=== PATIENT | male | born 1965 | race Caucasian/White ===

== ENCOUNTER → 2022-07-01 | Outpatient (CLI) | payer OTHER | END | disposition home or self-care (01) | LOC: RADPETMAIN 08:30 | PROVIDERS: ATTEND Radiology Radiation Oncology | DX: Z53.9 Procedure and treatment not carried out, unspecified reason (principal) ==

== ENCOUNTER → 2022-07-09 | Outpatient (CLI) | payer OTHER ==
--- NOTE | 2022-07-11 22:19 | PE ---
EXAMINATION TYPE: PET CT fusion skull to thigh DATE OF EXAM: 07/09/2022 CLINICAL INDICATION:Male, 57 years old with history of C09.1; TECHNIQUE: Following the intravenous administration of 13.0 mCi of F-18 FDG, whole body images are performed from the skull base to the midthigh. Images are reviewed on the computer in the coronal, a xial, and sagittal planes. Reconstructed rotating images are created on independent workstation and reviewed on the computer. A non-contrast CT is performed in conjunction with the PET scan. Glucose level 100 mg/dL COMPARISON: CT None, PET/CT None, FINDINGS: Mediastinal SUV mean is 1.4. Hepatic parenchyma SUV mean is 1.8. SKULL BASE AND NECK: Left mucosal mass with local invasion involving the left oropharynx with extension down towards the h ypopharynx and lingual tonsils. This extends into the parapharyngeal space on the left Max SUV 19.4. Multiple left-sided neck lymph nodes with increased metabolic activity example includes: * 10 mm in short axis lymph node max SUV 5.6 level 3. * More anteriorly to above lymph node max SUV 4.9. * Additional smaller subcentimeter lymph nodes are asymmetric uptake also present in the left neck. CHEST, MEDIASTINUM, AND HILAR REGION: No suspicious radiotracer activity. ABDOMEN AND PELVIS: No suspicious radiotracer activity. OSSEOUS STRUCTURES: No suspicious radiotracer activity. OTHER CT: Coronary artery atherosclerosis. Multiple calcified gallstones are present. Atherosclerosis of the abdominal aorta. Appendix is normal. Postsurgical changes to the lower cervical spine. IMPRESSION: 1. 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 2. No evidence of metastatic disease to the chest abdomen or pelvis or osseous structures.
== END | disposition home or self-care (01) ==
LOC: RADPETMAIN 09:19
PROVIDERS: ATTEND Radiology Radiation Oncology
DX: C09.1 Malignant neoplasm of tonsillar pillar (anterior) (posterior) (principal); C77.0 Secondary and unspecified malignant neoplasm of lymph nodes of head, face and neck
CPT/HCPCS: 78815; A9552

== ENCOUNTER → 2022-07-15 | Outpatient (CLI) | payer BC ==
[2022-07-15 08:59] LABS: African American GFR (CKD) >90 (>60 ml/min/1.73 sqM); Anion Gap 6 mmol/L; Blood Urea Nitrogen 14 mg/dL (9-20); Calcium 8.8 mg/dL (8.4-10.2); Carbon Dioxide 31 mmol/L (22-30); Chloride 102 mmol/L (98-107); Glucose 86 mg/dL (74-99); Non-African American GFR(CKD) 88 (>60 ml/min/1.73 sqM); Potassium 4.5 mmol/L (3.5-5.1); Sodium 139 mmol/L (137-145)
--- NOTE | 2022-07-15 10:26 | CT ---
EXAMINATION TYPE: CT soft tissue neck w con CT DLP: 552 mGycm, Automated exposure control for dose reduction was used. DATE OF EXAM: 07/15/2022 9:14 AM COMPARISON: PET CT 07/09/2022. 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 Axial sections with coronal and sagittal reformats were obtained. FINDINGS: Brain: Visualized portions are grossly unremarkable. Orbits: Unremarkable Sinuses: Mild mucosal thickening of the bilateral maxillary sinuses. Spaces of the neck: Redemonstration of a large mass within the left tonsillar pillar extending into t he parapharyngeal space, hypopharynx, and lingual tonsils. This measures 4.2 x 4.0 x 7.1 cm in AP, TV , CC dimensions. This abuts the base of the tongue with mass effect and loss of fat plane. Additional ly there is loss of fat plane with the The submandibular glands and parotid glands are symmetric and unremarkable. The larynx is unremarkable. The retropharyngeal space is unremarkable. Musculoskeletal: No acute osseous pathology. No aggressive osseous lesion. Anterior cervical fusion h ardware involving C6-C7. Lymph nodes: Multiple. Enlarged left-sided lymph nodes involving stations IIA, IIb, and III . Examp le includes a left to a lymph node measuring 1.1 cm short axis (series 3, image 24) and IIA 0.9 cm ly mph node (series 3, image 26). These were FDG avid on previous PET/CT. Vascular structures: Visualized major arteries are patent without evidence of aneurysm. Thoracic Inlet/airway: Airway is patent. Mild centrilobular emphysematous changes. Soft tissues/Thyroid: Thyroid and remainder of the soft tissues are unremarkable. Other: none. IMPRESSION 1. Large 7.1 cm mass centered within the left oropharynx/tonsillar pillar with extension into the par apharyngeal space, hypopharynx, lingual tonsils. This is consistent with malignancy until proven othe rwise such as squamous cell carcinoma. 2. Multiple enlarged metastatic lymph nodes in the left neck as demonstrated on prior PET/CT.
== END | disposition home or self-care (01) ==
LOC: RADCTMAIN 07:59
PROVIDERS: ATTEND Radiology Radiation Oncology
DX: C09.1 Malignant neoplasm of tonsillar pillar (anterior) (posterior) (principal); C77.9 Secondary and unspecified malignant neoplasm of lymph node, unspecified; R59.0 Localized enlarged lymph nodes
CPT/HCPCS: 80048; 70491; 36415; Q9967

== ENCOUNTER 2022-07-24 13:14 | Inpatient (IN) | payer BC ==
[2022-07-24 13:56] LABS: Basophils % (A) 0 %; Eosinophils # (A) 0.1 k/uL (0-0.7); Eosinophils % (A) 1 %; HCT 35.1 % (39.0-53.0); Lymphocytes # (A) 1.6 k/uL (1.0-4.8); Lymphocytes % (A) 25 %; MCH 28.2 pg (25.0-35.0); MCV 82.7 fL (80.0-100.0); Mean Platelet Volume 7.7; Monocytes # (A) 0.4 k/uL (0-1.0); Monocytes % (A) 6 %; Neutrophils # (A) 4.1 k/uL (1.3-7.7); Neutrophils % (A) 66 %; Platelet Count 274 k/uL (150-450); RBC 4.25 m/uL (4.30-5.90); RDW 13.1 % (11.5-15.5); WBC 6.3 k/uL (3.8-10.6)
--- NOTE | 2022-07-24 14:01 | ED ---
General Adult HPI - General Chief complaint: Weakness Stated complaint: Weakness,Sore throat Time Seen by Provider: 07/24/22 13:31 Source: patient, family Mode of arrival: wheelchair Limitations: no limitations - History of Present Illness Initial comments: Dictation was produced using [employer] dictation software. please excuse any grammatical, word or spelling errors. Chief Complaint: 57-year-old male presents emergency department for weakness History of Present Illness: Patient is a 57-year-old male presents emergency department for weakness. He was recently diagnosed this month with oral cancer. Over the last week or so patient has been feeling generally weak he states that his cancer symptoms prevented him from tolerating good meal due to trouble with dysphagia. Patient was seen recently by radiation oncologist who didn't do an oral scope so that there is mass effect GI tract. She presents with family member states that patient has been increasingly weak likely because he is unable to eat. He has scheduled chemotherapy and radiation therapy in the near future. His oncologist is Dr. Taylor. The ROS documented in this emergency department record has been reviewed and confirmed by me. Those systems with pertinent positive or negative responses have been documented in the HPI. All other systems are other negative and/or noncontributory. PHYSICAL EXAM: General Impression: Alert and oriented x3, not in acute distress HEENT: Normocephalic atraumatic, extra-ocular movements intact, pupils equal and reactive to light bilaterally, mucous membranes moist, palpable mass to the left neck Cardiovascular: Heart regular rate and rhythm Chest: Able to complete full sentences, no retractions, no tachypnea Abdomen: abdomen soft, non-tender, non-distended, no organomegaly Musculoskeletal: Pulses present and equal in all extremities, no peripheral edema Motor: no focal deficits noted Neurological: CN II-XII grossly intact, no focal motor or sensory deficits noted Skin: Intact with no visualized rashes Psych: Normal affect and mood ED course: 57-year-old male presents to the emergency department with worsening dysphagia secondary to oral an upper GI tract tumor. Vital signs upon arrival are within acceptable limits. Patient not drooling or showing signs of respiratory distress. Nursing notes and chart review was performed Laboratory evaluation obtained. CBC metabolic panel is unremarkable. Abdominal labs negative. Patient given IV fluids. He'll be admitted with consultation to oncology and dietitian for nutritional support. - Related Data Allergies Allergy/AdvReac Type Severity Reaction Status Date / Time No Known Allergies Allergy Verified 07/24/22 13:26 Review of Systems ROS Statement: Those systems with pertinent positive or pertinent negative responses have been documented in the HPI. ROS Other: All systems not noted in ROS Statement are negative. Past Medical History Past Medical History: Cancer Additional Past Medical History / Comment(s): tonsil cancer History of Any Multi-Drug Resistant Organisms: None Reported Additional Past Surgical History / Comment(s): neck surgery Past Psychological History: Depression Smoking Status: Never smoker Past Alcohol Use History: None Reported Past Drug Use History: None Reported General Exam Limitations: no limitations Course Vital Signs 07/24/22 13:23 Temperature 98.9 F Pulse Rate 86 Respiratory 18 Rate Blood Pressure 118/74 O2 Sat by Pulse 98 Oximetry Medical Decision Making - Lab Data Result diagrams: 07/24/22 13:43 07/24/22 13:43 Lab Results 07/24/22 07/24/22 Range/Units 13:43 13:43 WBC 6.3 (3.8-10.6) k/uL RBC 4.25 L (4.30-5.90) m/uL Hgb 12.0 L (13.0-17.5) gm/dL Hct 35.1 L (39.0-53.0) % MCV 82.7 (80.0-100.0) fL MCH 28.2 (25.0-35.0) pg MCHC 34.0 (31.0-37.0) g/dL RDW 13.1 (11.5-15.5) % Plt Count 274 (150-450) k/uL MPV 7.7 Neutrophils % 66 % Lymphocytes % 25 % Monocytes % 6 % Eosinophils % 1 % Basophils % 0 % Neutrophils # 4.1 (1.3-7.7) k/uL Lymphocytes # 1.6 (1.0-4.8) k/uL Monocytes # 0.4 (0-1.0) k/uL Eosinophils # 0.1 (0-0.7) k/uL Basophils # 0.0 (0-0.2) k/uL Sodium 139 (137-145) mmol/L Potassium 4.0 (3.5-5.1) mmol/L Chloride 102 (98-107) mmol/L Carbon Dioxide 29 (22-30) mmol/L Anion Gap 8 mmol/L BUN 25 H (9-20) mg/dL Creatinine 0.94 (0.66-1.25) mg/dL Est GFR (CKD-EPI)AfAm >90 (>60 ml/min/1.73 sqM) Est GFR (CKD-EPI)NonAf >90 (>60 ml/min/1.73 sqM) Glucose 117 H (74-99) mg/dL Calcium 9.1 (8.4-10.2) mg/dL Magnesium 2.0 (1.6-2.3) mg/dL Total Bilirubin 0.4 (0.2-1.3) mg/dL AST 23 (17-59) U/L ALT 19 (4-49) U/L Alkaline Phosphatase 93 (38-126) U/L Total Protein 7.8 (6.3-8.2) g/dL Albumin 4.2 (3.5-5.0) g/dL Disposition Clinical Impression: Dysphagia Disposition: ADMITTED IP TO THIS HOSP Condition: Fair Referrals: None,Stated [Primary Care Provider] - 1-2 days Decision Time: 14:29
[2022-07-24 14:13] LABS: African American GFR (CKD) >90 (>60 ml/min/1.73 sqM); Anion Gap 8 mmol/L; Blood Urea Nitrogen 25 mg/dL (9-20); Carbon Dioxide 29 mmol/L (22-30); Chloride 102 mmol/L (98-107); Glucose 117 mg/dL (74-99); Sodium 139 mmol/L (137-145)
[2022-07-24 14:14] LABS: ALT 19 U/L (4-49); AST 23 U/L (17-59); Albumin 4.2 g/dL (3.5-5.0); Alkaline Phosphatase 93 U/L (38-126); Calcium 9.1 mg/dL (8.4-10.2); Non-African American GFR(CKD) >90 (>60 ml/min/1.73 sqM); Total Bilirubin 0.4 mg/dL (0.2-1.3); Total Protein 7.8 g/dL (6.3-8.2)
[2022-07-24] MEDS ORDERED: SODIUM CHLORIDE 0.9% 1,000 ML IV STA ×2 (14:28)
[2022-07-24] MEDS ORDERED: NALOXONE 0.4 MG/ML 1 ML VIAL IV PRN (14:29)
[2022-07-24] MEDS ORDERED: ACETAMINOPHEN TAB 325 MG TAB PO PRN (14:29)
[2022-07-24] MEDS: MORPHINE SULFATE 4 MG/ML SYRINGE IVP PRN ×2 (17:20→21:07)
--- NOTE | 2022-07-24 17:47 | P.HPIM ---
History of Present Illness A pleasant 57 years old male who was recently diagnosed with tonsillar/oral cancer. His oncologist is Dr. Taylor Was admitted because of difficulty eating and dysphagia. Patient will be able to eat because of his tonsillar tumor for the last 5 days. He presents because patient was not eating and drinking 5 days, his been diagno sed with left insular cancer and he has mildly tender nontender lump below his left mandibular angle however he has tender right lymphadenopathy below his right mandibular angle as he states, his airway is patent with some indentation from the left side however it looks like he has difficulty in swallowing He has some nausea but no vomiting, no bowel movement this was not eating well. No abdominal pain. No chest pain or dyspnea, no urinary complaints, no headache dizziness weakness or numbness Over his been complaining of from right side thigh pain with no history of trauma, this patient looks [id number] and is bothering him without distress. Recently he vomited some of blood and developed with his ENT Dr. Moncada at [facility] we did score for him and no concerning source of bleeding is found Review of Systems Review of systems CONSTITUTIONAL: No fever, no malaise, no fatigue. HEENT: No recent visual problems or hearing problems. Denied any sore throat. CARDIOVASCULAR: No orthopnea, PND, no palpitations, no syncope. PULMONARY: No shortness of breath, no cough, no hemoptysis. GASTROINTESTINAL: No diarrhea, no nausea, no vomiting, no abdominal pain. Normoactive bowel sounds. NEUROLOGICAL: No headaches, no weakness, no numbness. HEMATOLOGICAL: Denies any bleeding or petechiae. GENITOURINARY: Denies any burning micturition, frequency, or urgency. MUSCULOSKELETAL/RHEUMATOLOGICAL: Denies any joint pain, swelling, or any muscle pain. ENDOCRINE: Denies any polyuria or polydipsia. Past Medical History Past Medical History: Cancer Additional Past Medical History / Comment(s): tonsil cancer History of Any Multi-Drug Resistant Organisms: None Reported Additional Past Surgical History / Comment(s): neck surgery Past Psychological History: Depression Smoking Status: Never smoker Past Alcohol Use History: None Reported Past Drug Use History: None Reported - Past Family History Father Family Medical History: Dementia Medications and Allergies Home Medications Medication Instructions Recorded Confirmed Type Escitalopram [Lexapro] 10 mg PO DAILY 07/24/22 07/24/22 History Allergies Allergy/AdvReac Type Severity Reaction Status Date / Time No Known Allergies Allergy Verified 07/24/22 15:35 Physical Exam Vitals: Vital Signs Temp Pulse Resp BP Pulse Ox 07/24/22 13:23 98.9 F 86 18 118/74 98 Intake and Output 07/23/22 07/24/22 07/24/22 22:59 06:59 14:59 Other: Weight 62.596 kg GENERAL: The patient is alert and oriented x3, not in any acute distress. Well developed, well nourished. -HEENT: Pupils are round and equally reacting to light. EOMI. No scleral icterus. No conjunctival pallor. Normocephalic, atraumatic. No pharyngeal er ythema. No thyromegaly. Mouth tumor: Left tonsillar mass with some smooth indentation on the left side of the oral cavity, with tenderness below the right mandibular angle with some fullness mostly related to tender lymphedema. CARDIOVASCULAR: S1 and S2 present. No murmurs, rubs, or gallops. PULMONARY: Chest is clear to auscultation, no wheezing or crackles. ABDOMEN: Soft, nontender, nondistended, normoactive bowel sounds. No palpable organomegaly. MUSCULOSKELETAL: No joint swelling or deformity. EXTREMITIES: No cyanosis, clubbing, or pedal edema. NEUROLOGICAL: Gross neurological examination did not reveal any focal deficits. SKIN: No rashes. no petechiae. Results CBC & Chem 7: 07/24/22 13:43 07/24/22 13:43 Labs: Abnormal Lab Results - Last 24 Hours (Table) 07/24/22 07/24/22 Range/Units 13:43 13:43 RBC 4.25 L (4.30-5.90) m/uL Hgb 12.0 L (13.0-17.5) gm/dL Hct 35.1 L (39.0-53.0) % BUN 25 H (9-20) mg/dL Glucose 117 H (74-99) mg/dL Assessment and Plan Assessment: Recently diagnosed with left tonsillar cancer with cervical lymphadenopathy Dysphagia secondary to above Uduj-ml-awczpltz calories protein malnutrition Right thigh pain Plan: Continue with gentle hydration with D5 normal saline Pain management with IV morphine Check ultrasound of the right leg Nutrition consult Hematology/oncology consult Labs and medication were reviewed.. Continue same treatment. Continue with sym ptomatic treatment. Resume home medication. Monitor labs and vitals. DVT and GI prophylaxis. Further recommendations as per clinical course of the patient DVT prophylaxis: Subcutaneous heparin GI Prophylaxis: Pepcid PT/OT: Pending Prognosis is guarded
[2022-07-24] MEDS: DEXTROSE 5%-0.9% NACL 1,000 ML IV SCH (18:22)
[2022-07-24] MEDS: HEPARIN SODIUM,PORCINE/PF 5,000 UNIT/0.5 ML SYRINGE SQ SCH (20:19)
--- NOTE | 2022-07-24 22:07 | US ---
EXAMINATION TYPE: US venous doppler duplex LE RT DATE OF EXAM: 07/24/2022 6:12 PM COMPARISON: NONE CLINICAL HISTORY: thigh pain. right anterior thigh pain x 2 weeks, comes and goes, no h/o dvt SIDE PERFORMED: Right TECHNIQUE: The lower extremity deep venous system is examined utilizing real time linear array sonog nathalie with graded compression, doppler sonography and color-flow sonography. VESSELS IMAGED: Common Femoral Vein Deep Femoral Vein Greater Saphenous Vein * Femoral Vein Popliteal Vein Small Saphenous Vein * Proximal Calf Veins (* superficial vessels) Right Leg: Negative for DVT soft tissue scan at area of pain was wnl IMPRESSION: No evidence of deep vein thrombosis in the right leg.
[2022-07-25] MEDS: MORPHINE SULFATE 4 MG/ML SYRINGE IVP PRN ×4 (04:47→19:40)
[2022-07-25] MEDS: HEPARIN SODIUM,PORCINE/PF 5,000 UNIT/0.5 ML SYRINGE SQ SCH ×2 (09:55→19:40)
[2022-07-25] MEDS: FAMOTIDINE 20 MG/2 ML VIAL IV SCH ×2 (09:55→19:39)
[2022-07-25] MEDS: ONDANSETRON 4 MG/2 ML VIAL IVP PRN (12:08)
--- NOTE | 2022-07-25 12:38 | FL ---
EXAMINATION TYPE: FL barium swallow w video DATE OF EXAM: 07/25/2022 COMPARISON: NONE HISTORY: Rule out aspiration, tonsillar carcinoma TECHNIQUE: Fluoroscopy. FINDINGS: Fluoroscopic guidance was provided for the procedure performed in conjunction with the [facility] pathology department. Please see complete report forthcoming from the Speech Pathology departmen t. Various consistencies from thin liquid to solids were administered. Fluoroscopy time 1 minute 31 seconds. Number of images: 0. No aspiration or penetration was evident. There was moderate pooling within the vallecular region. There is a masslike area within the hypopharynx which correlates with the mass on CT findings. Patient complained of pain during swallowing. No aspiration or penetration was evident however. IMPRESSION: 1. No aspiration or penetration with swallowing thin liquids and pudding thick consistency
[2022-07-25 13:03] VITALS: BMI 20.3
--- NOTE | 2022-07-25 14:01 | P.PN ---
Subjective A pleasant 57 years old male who was recently diagnosed with tonsillar/oral cancer. His oncologist is Dr. Taylor Was admitted because of difficulty eating and dysphagia. Patient will be able to eat because of his tonsillar tumor for the last 5 days. He presents because patient was not eating and drinking 5 days, his been diagnosed with left insular cancer and he has mildly tender nontender lump below his left mandibular angle however he has tender right lymphadenopathy below his right mandibular angle as he states, his airway is patent with some indentation from the left side however it looks like he has difficulty in swallowing He has some nausea but no vomiting, no bowel movement this was not eating well. No abdominal pain. No chest pain or dyspnea, no urinary complaints, no headache dizziness weakness or numbness Over his been complaining of from right side thigh pain with no history of trauma, this patient looks [id number] and is bothering him without distress. Recently he vomited some of blood and developed with his ENT Dr. Moncada at [facility] we did score for him and no concerning source of bleeding is found 07/25/2022 Patient with known new symptoms He is here for dysphagia and odynophagia. Related to his tonsillar tumor and cervical lymphadenopathy. Speech evaluation is appreciated, they recommended thin liquids and pured diet however is still very painful for the patient and is getting malnutrition. I discussed the case with hematology/oncology team and both agreed that he will benefit from another way of nutrition, PEG tube would be better option for him. Also patient with evidence of bradycardia which could be due to morphine effect. We will check TSH at consult perforator operator Objective - Vital Signs Vital signs: Vital Signs Temp 97.6 F 07/25/22 12:13 Pulse 47 L 07/25/22 12:13 Resp 16 07/25/22 12:13 BP 123/67 07/25/22 12:13 Pulse Ox 99 07/25/22 12:13 FiO2 Intake & Output 07/24/22 07/25/22 07/25/22 18:59 06:59 18:59 Intake Total 900 1140 180 Balance 900 1140 180 Weight 62.596 kg 62.596 kg Intake: Intake, IV Titration 900 900 Amount Dextrose 5%-0.9% NaCl 1, 900 900 000 ml @ 75 mls/hr IV . [id number] ANGELA Rx#:[id number] Oral 240 180 Other: # Voids 1 - Exam GENERAL: The patient is alert and oriented x3, not in any acute distress. Well developed, well nourished. -HEENT: Pupils are round and equally reacting to light. EOMI. No scleral icterus. No conjunctival pallor. Normocephalic, atraumatic. No pharyngeal erythema. No thyromegaly. Mouth tumor: Left tonsillar mass with some smooth indentation on the left side of the oral cavity, with tenderness below the right mandibular angle with some fullness mostly related to tender lymphedema. CARDIOVASCULAR: S1 and S2 present. No murmurs, rubs, or gallops. PULMONARY: Chest is clear to auscultation, no wheezing or crackles. ABDOMEN: Soft, nontender, nondistended, normoactive bowel sounds. No palpable organomegaly. MUSCULOSKELETAL: No joint swelling or deformity. EXTREMITIES: No cyanosis, clubbing, or pedal edema. NEUROLOGICAL: Gross neurological examination did not reveal any focal deficits. SKIN: No rashes. no petechiae. - Labs CBC & Chem 7: 07/24/22 13:43 07/24/22 13:43 Labs: Abnormal Lab Results - Last 24 Hours (Table) 07/24/22 Range/Units 13:43 BUN 25 H (9-20) mg/dL Glucose 117 H (74-99) mg/dL Assessment and Plan Assessment: Recently diagnosed with left tonsillar cancer with cervical lymphadenopathy Dysphagia secondary to above Iyjg-pj-bbpgyydg calories protein malnutrition Right thigh pain Plan: Continue with gentle hydration with D5 normal saline Pain management with IV morphine Check ultrasound of the right leg Nutrition consult Hematology/oncology consult Labs and medication were reviewed.. Continue same treatment. Continue with symptomatic treatment. Resume home medication. Monitor labs and vitals. DVT and GI prophylaxis. Further recommendations as per clinical course of the patient DVT prophylaxis: Subcutaneous heparin GI Prophylaxis: Pepcid PT/OT: Pending Prognosis is guarded
--- NOTE | 2022-07-25 14:59 | P.GSCN ---
History of Present Illness Consult date: 07/25/22 History of present illness: CHIEF COMPLAINT: Weakness, sore throat HISTORY OF PRESENT ILLNESS: This is a 57-year-old male with a known history of tonsillar cancer that was diagnosed in May 2022. He is to start chemoradiation treatment on Monday. Patient reports that he has progressively gotten weaker and has had difficulty with swallowing. Patient reports that it is painful with swallowing liquids or solids. He was seen by speech therapy had recommended thin liquids and a pured diet. However patient is not meeting his nutritional needs. Patient followed closely by oncology. And surgical service has been consulted for PEG tube placement for patient to meet his nutritional needs. PAST MEDICAL HISTORY: See below PAST SURGICAL HISTORY: See below MEDICATIONS: See below ALLERGIES: See below SOCIAL HISTORY: No illicit drug use. REVIEW OF SYSTEMS: CONSTITUTIONAL: Denies fever or chills. HEENT: Denies blurred vision, vision changes, or eye pain. Denies hemoptysis CARDIOVASCULAR: Denies chest pain or pressure. RESPIRATORY: No shortness of breath. GASTROINTESTINAL: See HPI for pertinent findings HEMATOLOGIC: Denies bleeding disorders. GENITOURINARY: Denies any blood in urine or increased urinary frequency. SKIN: Denies pruitis. Denies rash. PHYSICAL EXAM: VITAL SIGNS: Reviewed GENERAL: Well-developed in no acute distress. HEENT: Left neck mass noted ABDOMEN: Soft. Nondistended. Nontender NEUROLOGIC: Alert and oriented. Cranial nerves II through XII grossly intact. LABORATORY DATA: WBC is 6.3 Hgb is 12 platelets 274 Sodium 139 potassium is 4.0 creatinine 0.94 Albumin 4.2 IMAGING: ASSESSMENT: 1. Dysphagia 2. Poor oral intake 3. Tonsillar cancer PLAN: -Patient scheduled for EGD with PEG tube placement tomorrow with Dr. george -Keep patient nothing by mouth after midnight Thank you for this consultation Physician [employer] note has been reviewed by physician. Signing provider agrees with the documented findings, assessment, and plan of care. Past Medical History Past Medical History: Cancer Additional Past Medical History / Comment(s): tonsil cancer History of Any Multi-Drug Resistant Organisms: None Reported Additional Past Surgical History / Comment(s): neck surgery Additional Past Anesthesia/Blood Transfusion Reaction / Comm: no history of Past Psychological History: Depression Smoking Status: Never smoker Past Alcohol Use History: None Reported Past Drug Use History: None Reported - Past Family History Father Family Medical History: Dementia Medications and Allergies Home Medications Medication Instructions Recorded Confirmed Type Escitalopram [Lexapro] 10 mg PO DAILY 07/24/22 07/24/22 History Allergies Allergy/AdvReac Type Severity Reaction Status Date / Time No Known Allergies Allergy Verified 07/24/22 15:35 Surgical - Exam Vital Signs Temp Pulse Resp BP Pulse Ox 98.9 F 86 18 118/74 98 07/24/22 13:23 07/24/22 13:23 07/24/22 13:23 07/24/22 13:23 07/24/22 13:23 Results - Labs 07/24/22 13:43 07/24/22 13:43
--- NOTE | 2022-07-25 18:54 | P.CONS ---
History of Present Illness - Reason for Consult Consult date: 07/25/22 tonsilar carcinoma Requesting physician: Shawn Chadwick - Chief Complaint odynophagia - History of Present Illness Kyaw presented with enlarging ainless, left neck mass X 2 months, progressed to having hemoptysis and sore throat, presented to ER where he was found to have large left tonsilar mass, CT Scan revealed 3.6X3.6X6.6 cm mass extending to base of tongue. Was evaluated by Dr Barclay at [facility], Bx revealed P16+ squamos cell carcinoma. 07/2022, staging PET multiple ipisilateral lymphnodes, no distant mets. No smoking Hx or ETOH use. He has lost about 65 lbs over several months. He is having pain and difficulty swallowing. He was to start treatment this week. Denies fever, choking on foods or fluids yet, no aspiration, no other c/o. Review of Systems 10 point ROS is neg except as stated in HPI Past Medical History Past Medical History: Cancer Additional Past Medical History / Comment(s): tonsil cancer History of Any Multi-Drug Resistant Organisms: None Reported Additional Past Surgical History / Comment(s): neck surgery Additional Past Anesthesia/Blood Transfusion Reaction / Comm: no history of Past Psychological History: Depression Smoking Status: Never smoker Past Alcohol Use History: None Reported Past Drug Use History: None Reported - Past Family History Father Family Medical History: Dementia Medications and Allergies Home Medications Medication Instructions Recorded Confirmed Type Escitalopram [Lexapro] 10 mg PO DAILY 07/24/22 07/24/22 History Allergies Allergy/AdvReac Type Severity Reaction Status Date / Time No Known Allergies Allergy Verified 07/24/22 15:35 Physical Exam Vitals: Vital Signs Temp Pulse Pulse Pulse Resp BP BP 07/25/22 04:48 97.6 F 53 L 16 132/70 07/24/22 20:28 97.6 F 46 L 16 121/67 07/24/22 15:59 98.1 F 50 L 16 138/76 07/24/22 15:37 86 16 138/68 07/24/22 15:30 86 07/24/22 15:05 66 16 132/71 07/24/22 13:23 98.9 F 86 18 118/74 Pulse Ox 07/25/22 04:48 100 07/24/22 20:28 100 12/18/22 15:59 99 07/24/22 15:37 98 07/24/22 15:30 07/24/22 15:05 99 07/24/22 13:23 98 Intake and Output 07/24/22 07/25/22 07/25/22 22:59 06:59 14:59 Intake Total 1020 1020 180 Balance 1020 1020 180 Intake: Intake, IV Titration 900 900 Amount Dextrose 5%-0.9% NaCl 1, 900 900 000 ml @ 75 mls/hr IV . [id number] [facility] Rx#:[id number] Oral 120 120 180 Other: # Voids 1 Weight 62.596 kg - Constitutional General appearance: cooperative, mild distress, thin - EENT lt tonsilat swelling, bilateral cervical LAD Eyes: anicteric sclerae, EOMI ENT: hearing grossly normal - Neck Neck: lymphadenopathy - Respiratory Respiratory: bilateral: CTA - Cardiovascular Rhythm: regular Heart sounds: normal: S1, S2 Abnormal Heart Sounds: no systolic murmur, no diastolic murmur, no rub, no S3 Gallop, no S4 Gallop, no click, no other leg Peripheral Edema: bilateral: None - Gastrointestinal General gastrointestinal: no absent bowel sounds, no decreased bowel sounds, no distended, no hepatomegaly, no hyperactive bowel sounds, normal bowel sounds, no organomegaly, no rigid, no scaphoid, soft, no splenomegaly, no tenderness, no umbilical hernia, no ventral hernia - Integumentary Integumentary: pale - Musculoskeletal Musculoskeletal: strength equal bilaterally - Psychiatric Psychiatric: A&O x's 3, appropriate affect, intact judgment & insight Results CBC & Chem 7: 07/24/22 13:43 07/24/22 13:43 Labs: Abnormal Lab Results - Last 24 Hours (Table) 07/24/22 07/24/22 Range/Units 13:43 13:43 RBC 4.25 L (4.30-5.90) m/uL Hgb 12.0 L (13.0-17.5) gm/dL Hct 35.1 L (39.0-53.0) % BUN 25 H (9-20) mg/dL Glucose 117 H (74-99) mg/dL Assessment and Plan (1) Cancer of tonsil Current Visit: Yes Status: Acute Priority: High Code(s): C09.9 - MALIGNANT NEOPLASM OF TONSIL, UNSPECIFIED SNOMED Code(s): 673257557 Plan: New diagnosis of tonsilar carcinoma, definitive treatment with chemo/XRT concurrently to start soon. Rad Onc consulted. Dysphagia, odynophagia 2/2 mass. Pt needs source of nutrition, Surgery co nsulted for PEG insertion. Swallowing is going to get worse before it gets better. No DVT in RLE attests: I have seen and examined patient, I performed H&P, developed impression and plan of care. Discussed with dictator. I agree with documentation dictated as a scribe Time with Patient: Greater than 30
[2022-07-25] MEDS: DEXTROSE 5%-0.9% NACL 1,000 ML IV SCH ×2 (19:40→19:48)
[2022-07-26] MEDS: MORPHINE SULFATE 4 MG/ML SYRINGE IVP PRN ×5 (00:19→23:04)
[2022-07-26] MEDS: ONDANSETRON 4 MG/2 ML VIAL IVP PRN ×2 (00:19→13:09)
--- NOTE | 2022-07-26 07:42 | P.PN ---
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 He was scheduled to initiate chemoradiation on 07/25/22. Unfortunately, the patient was hospitalized secondary to generalized weakness and increased difficulty with dysphagia. The patient reports he has been unable to eat solid foods for the past 5-6 days. He has been trying to stay hydrated, but has been feeling generalized weakness. He is also reporting right-sided neck pain, that seems worse with talking her eating. The pain can be up to 10 out of 10 at times. He is currently taking morphine every 4 hours, but this does not seem to help for the entire duration. He did pass his swallow study earlier today. Objective - Vital Signs Vital signs: Vital Signs Temp 97.7 F 07/26/22 04:26 Pulse 50 L 07/26/22 04:26 Resp 18 07/26/22 04:26 BP 131/71 07/26/22 04:26 Pulse Ox 100 07/26/22 04:26 FiO2 Intake & Output 07/25/22 07/26/22 07/26/22 18:59 06:59 18:59 Intake Total 180 1400 Balance 180 1400 Weight 62.596 kg Intake: Intake, IV Titration 900 Amount Dextrose 5%-0.9% NaCl 1, 900 000 ml @ 75 mls/hr IV . [id number] [facility] Rx#:[id number] Oral 180 500 Other: Voiding Method Toilet # Voids 3 - Constitutional General appearance: Present: no acute distress - EENT Eyes: Present: EOMI, PERRLA ENT: Present: other (large left posterior oropharynx mass distorting anatomy. 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 He was scheduled to initiate chemoradiation on 07/25/22. Unfortunately, the patient was hospitalized secondary to generalized weakness and increased difficulty with dysphagia. Plan: 1. Dysphagia - The patient unfortunately has had worsening dysphagia likely secondary to his tumor over the past week. He is no longer able to eat solid foods, and unfortunately has had some generalized weakness secondary to this. T he patient initially resisted the idea of a PEG tube, but he is now agreeable to have this placed. 2. Tonsil cancer - the patient's chemoradiation will be put on hold while he has his PEG tube placed. Considering these modalities need to be started concurrently, we will likely wait till this coming Monday to initiate both. 3. Neck pain - the patient is likely having tumor related pain. We will set a goal of improved pain management prior to discharge. Interestingly, the patient did not have such pain during our last outpatient visit on July 13. Time with Patient: Less than 30
[2022-07-26] MEDS: DEXTROSE 5%-0.9% NACL 1,000 ML IV SCH ×2 (08:33→17:34)
[2022-07-26] MEDS: HEPARIN SODIUM,PORCINE/PF 5,000 UNIT/0.5 ML SYRINGE SQ SCH ×2 (08:35→20:08)
[2022-07-26] MEDS: FAMOTIDINE 20 MG/2 ML VIAL IV SCH ×2 (08:35→20:08)
[2022-07-26 09:11] LABS: HGB 10.5 g/dL (13.0-17.0); MCH 27.6 pg (27.0-32.0); MCHC 32.8 g/dL (32.0-37.0); Mean Platelet Volume 9.6 fL (9.5-12.2); NRBC Per 100 WBC 0 /100 WBCS (0.0-0.0); Platelet Count 205 X 10*3/uL (140-440); RBC 3.81 X 10*6/uL (4.40-5.60); RDW 12.8 % (11.5-14.5); WBC 4.48 X 10*3/uL (4.50-10.00)
[2022-07-26 09:17] LABS: Anion Gap 6.4 mmol/L (10.00-18.00); BUN/Creat Ratio 7.22 Ratio (12.00-20.00); Blood Urea Nitrogen 6.5 mg/dL (9.0-27.0); Calcium 8.9 mg/dL (8.7-10.3); Carbon Dioxide 28.6 mmol/L (20.0-27.5); Non-African American GFR(CKD) 95.8 (60.0-200.0); Potassium 4.2 mmol/L (3.5-5.5)
--- NOTE | 2022-07-26 10:39 | P.PN ---
Subjective Progress Note Date: 07/26/22 Principal diagnosis: odynophagia and failure to thrive, tonsilar CA Pain with swallowing, no BM, generalized weakness Objective - Vital Signs Vital signs: Vital Signs Temp 97.7 F 07/26/22 04:26 Pulse 50 L 07/26/22 04:26 Resp 18 07/26/22 04:26 BP 131/71 07/26/22 04:26 Pulse Ox 100 07/26/22 04:26 FiO2 Intake & Output 07/25/22 07/26/22 07/26/22 18:59 06:59 18:59 Intake Total 180 1400 Balance 180 1400 Weight 62.596 kg Intake: Intake, IV Titration 900 Amount Dextrose 5%-0.9% NaCl 1, 900 000 ml @ 75 mls/hr IV . [id number] [facility] Rx#:[id number] Oral 180 500 Other: Voiding Method Toilet # Voids 3 - Constitutional General appearance: Present: cooperative, no acute distress, thin - EENT Eyes: Present: EOMI. Absent: anicteric sclerae ENT: Present: hearing grossly normal - Neck Neck: Present: lymphadenopathy - Respiratory Details: Breathing even and unlabored, no resp distress - Cardiovascular Details: Skin warm and dry - Integumentary Integumentary Comment(s): dull skin tone Integumentary: Present: normal. Absent: jaundiced - Neurologic Neurologic: Present: CNII-XII intact (grossly ) - Musculoskeletal Musculoskeletal: Present: generalized weakness, strength equal bilaterally - Psychiatric Psychiatric: Present: A&O x's 3, appropriate affect, intact judgment & insight - Allied health notes Allied health notes reviewed: case management - Labs CBC & Chem 7: 07/26/22 06:20 07/26/22 06:20 Labs: Abnormal Lab Results - Last 24 Hours (Table) 07/26/22 07/26/22 Range/Units 06:20 06:20 WBC 4.48 L (4.50-10.00) X 10*3/uL RBC 3.81 L (4.40-5.60) X 10*6/uL Hgb 10.5 L (13.0-17.0) g/dL Hct 32.0 L (39.6-50.0) % Carbon Dioxide 28.6 H (20.0-27.5) mmol/L Anion Gap 6.40 L (10.00-18.00) mmol/L BUN 6.5 L (9.0-27.0) mg/dL BUN/Creatinine Ratio 7.22 L (12.00-20.00) Ratio Assessment and Plan (1) Cancer of tonsil Current Visit: Yes Status: Acute Priority: High Code(s): C09.9 - MALIGNANT NEOPLASM OF TONSIL, UNSPECIFIED SNOMED Code(s): 088558476 (2) Odynophagia Current Visit: Yes Status: Acute Priority: High Code(s): R13.10 - DYSPHAGIA, UNSPECIFIED SNOMED Code(s): 83034009 (3) Dysphagia Current Visit: Yes Status: Acute Priority: High Code(s): R13.10 - DYSPHAGIA, UNSPECIFIED SNOMED Code(s): 95176809 Plan: Squamous cell head and neck cancer, limited disease Plan: concurrent chemo/radiation planned Dysphagia secondary to above. PEG tube placement today for supplemental nutrition and hydration Discussed with case management. Home care Yard Laborer will be consulted for formula recommendations Will trial liquid loratab, to manage pain Medications for prevention of narcotic induced constipation Dr attests: I have performed H&P and developed impression and plan of care for patient, discussed with dictator. I agree with dicatted note, documented as a scribe
[2022-07-26] MEDS ORDERED: IV FLUID CONTINUATION 1,000 ML IV ONE ×2 (11:23)
[2022-07-26] MEDS ORDERED: PROPOFOL 10 MG/ML 20 ML VIAL IV ONE (11:37)
[2022-07-26] MEDS ORDERED: LIDOCAINE 2% INJ 20 MG/ML (2 ML VIAL) ONE (11:37)
--- NOTE | 2022-07-26 11:42 | P.CRDCN ---
History of Present Illness Consult date: 07/26/22 Reason for Consult (text): bradycardia History of present illness: This is a 57-year-old male patient with no past history of coronary artery d isease and does not follow with a automotive metalsmith. Patient does have a past medical history significant for tonsillar/oral cancer with dysphagia. He is scheduled for EGD and PEG tube today. We have been consult and to evaluate the patient for bradycardia. Heart rate of high 40s intermittently. Patient does not have an EKG nor telemetry monitoring. He in general states he's not feeling well. He is complaining of sore throat. He denies any lightheadedness or dizziness, no chest pain, no shortness of breath. He did have a little lightheadedness yesterday. WBC 4.4, hemoglobin 10.5, platelet count 205. Potassium 4.2. BUN is 6.5 and creatinine 0.9. Ultrasound of bilateral lower extremities negative for DVT Review Of Systems: At the time of my evaluation Constitutional: No fever, no chills. Reports fatigue. Reports weight loss EENT: No headache. No dizziness. Reports sore throat. Lungs: No shortness of breath, cough, no sputum production. No wheezing. Cardiovascular: No chest pain, no lower extremity edema. No palpitations. No paroxysmal nocturnal dyspnea. No orthopnea. No lightheadedness or dizziness. No syncopal episodes. Abdominal: No abdominal pain. No nausea, vomiting. No diarrhea. No constipation. No bloody or tarry stools. Genitourinary: No dysuria.. No urinary retention. Musculoskeletal: No myalgias. No muscle weakness, no gait dysfunction, no frequ ent falls. No back pain. No neck pain. Integumentary: No wounds. No rash or pruritus. No unusual bruising. Neurologic: No aphasia. No facial droop. No change in mentation. No head injury. No headache. No paralysis. No paresthesia. Psychiatric: No depression. No anxiety. Endocrine: No abnormal blood sugars. Physical examination: Gen: This is a thin ill appearing 57-year-old male patient VS: reviewed HEENT: Head is atraumatic, normocephalic. Pupils equal, round. Sclerae is anicteric. NECK: Supple. No JVD. LUNGS: Clear to auscultation. No wheezes or rhonchi. No intercostal retraction s. HEART: Regular rate and rhythm. No murmur. ABDOMEN: Soft. No masses. No tenderness. EXTREMITIES: No pedal edema. No calf tenderness. NEUROLOGICAL: Patient is awake, alert and oriented x3. Assessment: Bradycardia Tonsillar cancer Severe protein calorie malnutrition Plan: Obtain EKG Place patient on cardiac monitoring Obtain 2-D echocardiogram and Doppler study to assess cardiac structure and function Further recommendations to follow based upon clinical course Thank you kindly for this consultation. Nurse practitioner note has been reviewed, I agree with documented findings and plan of care. Patient was seen and examined. Past Medical History Past Medical History: Cancer Additional Past Medical History / Comment(s): tonsil cancer History of Any Multi-Drug Resistant Organisms: None Reported Additional Past Surgical History / Comment(s): neck surgery Additional Past Anesthesia/Blood Transfusion Reaction / Comment(s): no history of Past Psychological History: Depression Smoking Status: Never smoker Past Alcohol Use History: None Reported Past Drug Use History: None Reported - Past Family History Father Family Medical History: Dementia Medications and Allergies Home Medications Medication Instructions Recorded Confirmed Type Escitalopram [Lexapro] 10 mg PO DAILY 07/24/22 07/24/22 History Allergies Allergy/AdvReac Type Severity Reaction Status Date / Time No Known Allergies Allergy Verified 07/24/22 15:35 Physical Exam Vitals: Vital Signs Temp Pulse Resp BP Pulse Ox 07/26/22 04:26 97.7 F 50 L 18 131/71 100 07/25/22 20:00 16 07/25/22 19:32 97.3 F L 48 L 16 146/75 100 07/25/22 12:13 97.6 F 47 L 16 123/67 99 Intake and Output 07/25/22 07/26/22 07/26/22 22:59 06:59 14:59 Intake Total 1400 Balance 1400 Intake: Intake, IV Titration 900 Amount Dextrose 5%-0.9% NaCl 1, 900 000 ml @ 75 mls/hr IV . [id number] [facility] Rx#:[id number] Oral 500 Other: Voiding Method Toilet # Voids 3 Results 07/26/22 06:20 07/26/22 06:20 Current Medications Generic Name Dose Route Start Last Admin Trade Name Freq PRN Reason Stop Dose Admin Acetaminophen 650 mg 07/24/22 14:29 Acetaminophen Tab 325 Mg Tab PO Q6HR PRN Mild Pain or Fever > 100.5 Famotidine 20 mg 07/25/22 09:00 07/25/22 19:39 Famotidine 20 Mg/2 Ml Vial IV 20 mg Q12HR [facility] Administration Heparin Sodium (Porcine) 5,000 unit 07/24/22 21:00 07/25/22 19:40 Heparin Sodium,Porcine/Pf 5,000 Unit/0.5 Ml Syringe SQ 5,000 unit Q12HR [facility] Administration Dextrose/Sodium Chloride 1,000 mls @ 75 mls/hr 07/24/22 17:45 07/25/22 19:48 Dextrose 5%-Ns Iv Soln IV Not Given .[id number] [facility] Morphine Sulfate 4 mg 07/24/22 16:49 07/26/22 06:40 Morphine Sulfate 4 Mg/Ml Syringe IVP 4 mg Q4HR PRN Administration Pain Naloxone HCl 0.2 mg 07/24/22 14:29 Naloxone 0.4 Mg/Ml 1 Ml Vial IV Q2M PRN Opioid Reversal Ondansetron HCl 4 mg 07/24/22 14:29 07/26/22 00:19 Ondansetron 4 Mg/2 Ml Vial IVP 4 mg Q8HR PRN Administration Nausea And Vomiting Intake and Output 07/25/22 07/26/22 07/26/22 22:59 06:59 14:59 Intake Total 1400 Balance 1400 Intake: Intake, IV Titration 900 Amount Dextrose 5%-0.9% NaCl 1, 900 000 ml @ 75 mls/hr IV . [id number] [facility] Rx#:[id number] Oral 500 Other: Voiding Method Toilet # Voids 3 07/24/22 13:43 07/24/22 13:43
--- NOTE | 2022-07-26 11:53 | P.OP ---
Date of Procedure: 07/26/22 Preoperative Diagnosis: Malnutrition Postoperative Diagnosis: Malnutrition Procedure(s) Performed: EGD with PEG Anesthesia: MAC Surgeon: Salvador Thakur Pathology: none sent Condition: stable Disposition: PACU Description of Procedure: The patient's placed on the bed in the supine position. T the patient received IV sedation. Next the gastroscope placed oropharynx passed in the esophagus and stomach. There is no evidence of any outlet obstruction. Stomach was insufflated with air. The light reflux seen the anterior abdominal wall. The abdomen was prepped and draped usual fashion. The skin was incised. And the needles placed and stomach under direct visualization. The needle was snared. And the wires placed through the needle and the wire was snared and brought the oropharynx. The PEG tube was placed over top the wire brought down to the stomach. The PEG tube was secured. At the 3 cm aubrey. The one-piece bolster was used. Patient tolerated procedure well.
--- NOTE | 2022-07-26 11:56 | CA ---
Transthoracic Echo Report Name: Kyaw Rosa Age: 57 Gender: M : 1965 Exam Date: 07/26/2022 09:18 Exam Location: [facility] Ht (in): 69 Wt (lb): 138 Ordering Physician: Yesi Benson Attending/Referring Phys: [id number], Kelley Junior Programmer Qing Ngo RDCS Procedure CPT: Indications: LVF Cardiac Hx: Technical Quality: Fair Contrast 1: Total Dose (mL): Contrast 2: Total Dose (mL): MEASUREMENTS (Male / Female) Normal Values 2D ECHO LV Diastolic Diameter PLAX 4.4 cm 4.2 - 5.9 / 3.9 - 5.3 cm LV Systolic Diameter PLAX 2.9 cm IVS Diastolic Thickness 0.9 cm 0.6 - 1.0 / 0.6 - 0.9 cm LVPW Diastolic Thickness 1.0 cm 0.6 - 1.0 / 0.6 - 0.9 cm LV Relative Wall Thickness 0.4 RV Internal Dim ED PLAX 3.7 cm LA Volume 47.8 cm??? 18 - 58 / 22 - 52 cm??? M-MODE Aortic Root Diameter MM 3.2 cm LA Systolic Diameter MM 3.2 cm LA Ao Ratio MM 1.0 AV Cusp Separation MM 2.1 cm DOPPLER AV Peak Velocity 117.2 cm/s AV Peak Gradient 5.5 mmHg AV Mean Velocity 72.6 cm/s AV Mean Gradient 2.3 mmHg AV Velocity Time Integral 25.4 cm LVOT Peak Velocity 113.6 cm/s LVOT Peak Gradient 5.2 mmHg MV Area PHT 2.9 cm??? Mitral E Point Velocity 85.8 cm/s Mitral A Point Velocity 48.1 cm/s Mitral E to A Ratio 1.8 MV Deceleration Time 261.6 ms MV E' Velocity 12.5 cm/s Mitral E to MV E' Ratio 6.8 TR Peak Velocity 207.8 cm/s TR Peak Gradient 17.3 mmHg Right Ventricular Systolic Press 22.3 mmHg FINDINGS Left Ventricle Normal Left ventricular size, wall thickness, systolic function with no obvious regional wall motion abnormalities. Normal Left ventricular diastolic filling pattern. Left ventricular ejection fraction is estimated at 55 %. Right Ventricle Mild right ventricular dilatation. Right ventricular systolic pressure within normal limits. Right Atrium Normal right atrial size. Left Atrium Normal left atrial size. Mitral Valve Structurally normal mitral valve. Mild mitral regurgitation. Aortic Valve Trileaflet aortic valve. No aortic stenosis. Trace aortic regurgitation. Tricuspid Valve Mild tricuspid regurgitation. Pulmonic Valve Trace pulmonic regurgitation. Pericardium No pericardial effusion. Aorta Normal size aortic root and proximal ascending aorta. CONCLUSIONS Normal biventricular systolic function Mild aortic insufficiency Previewed by: Dr. Deondre Cruz MD (Electronically Signed) Final Date: 26 July 2022 11:55
--- NOTE | 2022-07-26 14:24 | P.PN ---
Subjective A pleasant 57 years old male who was recently diagnosed with tonsillar/oral cancer. His oncologist is Dr. Taylor Was admitted because of difficulty eating and dysphagia. Patient will be able to eat because of his tonsillar tumor for the last 5 days. He presents because patient was not eating and drinking 5 days, his been diagnosed with left insular cancer and he has mildly tender nontender lump below his left mandibular angle however he has tender right lymphadenopathy below his right mandibular angle as he states, his airway is patent with some indentation from the left side however it looks like he has difficulty in swallowing He has some nausea but no vomiting, no bowel movement this was not eating well. No abdominal pain. No chest pain or dyspnea, no urinary complaints, no headache dizziness weakness or numbness Over his been complaining of from right side thigh pain with no history of trauma, this patient looks [id number] and is bothering him without distress. Recently he vomited some of blood and developed with his ENT Dr. Moncada at [facility] we did score for him and no concerning source of bleeding is found 07/25/2022 Patient with known new symptoms He is here for dysphagia and odynophagia. Related to his tonsillar tumor and cervical lymphadenopathy. Speech evaluation is appreciated, they recommended thin liquids and pured diet however is still very painful for the patient and is getting malnutrition. I discussed the case with hematology/oncology team and both agreed that he will benefit from another way of nutrition, PEG tube would be better option for him. Also patient with evidence of bradycardia which could be due to morphine effect. We will check TSH at consult liver trimmer 07/26/2022 Patient is status post PEG tube placement today, we'll start tube feeding too. Diet team consult Patient's mildly bradycardic but asymptomatic, cardiology input is appreciated, echocardiogram is pending Patient other than that clinically stable, no other new complaint. Continue with gentle hydration Possible discharge in 24-48 hours Objective - Vital Signs Vital signs: Vital Signs Temp 97.8 F 07/26/22 13:00 Pulse 51 L 07/26/22 13:00 Resp 16 07/26/22 13:00 BP 135/81 07/26/22 13:00 Pulse Ox 100 07/26/22 13:00 FiO2 Intake & Output 07/25/22 07/26/22 07/26/22 18:59 06:59 18:59 Intake Total 180 1400 200 Output Total 1 Balance 180 1400 199 Weight 62.596 kg 62.3 kg Intake: IV 200 Intake, IV Titration 900 Amount Dextrose 5%-0.9% NaCl 1, 900 000 ml @ 75 mls/hr IV . [id number] [facility] Rx#:[id number] Oral 180 500 Output: Estimated Blood Loss 1 Other: Voiding Method Toilet # Voids 3 - Exam GENERAL: The patient is alert and oriented x3, not in any acute distress. Well developed, well nourished. -HEENT: Pupils are round and equally reacting to light. EOMI. No scleral icterus . No conjunctival pallor. Normocephalic, atraumatic. No pharyngeal erythema. No thyromegaly. Mouth tumor: Left tonsillar mass with some smooth indentation on the left side of the oral cavity, with tenderness below the right mandibular angle with some fullness mostly related to tender lymphedema. CARDIOVASCULAR: S1 and S2 present. No murmurs, rubs, or gallops. PULMONARY: Chest is clear to auscultation, no wheezing or crackles. ABDOMEN: Soft, nontender, nondistended, normoactive bowel sounds. No palpable organomegaly. MUSCULOSKELETAL: No joint swelling or deformity. EXTREMITIES: No cyanosis, clubbing, or pedal edema. NEUROLOGICAL: Gross neurological examination did not reveal any focal deficits. SKIN: No rashes. no petechiae. - Labs CBC & Chem 7: 07/26/22 06:20 07/26/22 06:20 Labs: Abnormal Lab Results - Last 24 Hours (Table) 07/26/22 07/26/22 Range/Units 06:20 06:20 WBC 4.48 L (4.50-10.00) X 10*3/uL RBC 3.81 L (4.40-5.60) X 10*6/uL Hgb 10.5 L (13.0-17.0) g/dL Hct 32.0 L (39.6-50.0) % Carbon Dioxide 28.6 H (20.0-27.5) mmol/L Anion Gap 6.40 L (10.00-18.00) mmol/L BUN 6.5 L (9.0-27.0) mg/dL BUN/Creatinine Ratio 7.22 L (12.00-20.00) Ratio Assessment and Plan Assessment: Recently diagnosed with left tonsillar cancer with cervical lymphadenopathy Dysphagia secondary to above [id number] calories protein malnutrition Right thigh pain Asymptomatic bradycardia Plan: Continue with gentle hydration with D5 normal saline Pain management with IV morphine Cardiology consult, echocardiogram is pending Nutrition consult Hematology/oncology consult Labs and medication were reviewed.. Continue same treatment. Continue with symptomatic treatment. Resume home medication. Monitor labs and vitals. DVT and GI prophylaxis. Further recommendations as per clinical course of the patient DVT prophylaxis: Subcutaneous heparin GI Prophylaxis: Pepcid Prognosis is guarded
[2022-07-27] MEDS: MORPHINE SULFATE 4 MG/ML SYRINGE IVP PRN ×4 (03:34→19:38)
[2022-07-27] MEDS: ONDANSETRON 4 MG/2 ML VIAL IVP PRN (03:34)
[2022-07-27 07:41] LABS: Basophils % (A) 0 %; Eosinophils % (A) 0 %; HCT 32.9 % (39.0-53.0); HGB 10.7 gm/dL (13.0-17.5); Hypochromasia Slight; Lymphocytes # (A) 1.1 k/uL (1.0-4.8); Lymphocytes % (A) 9 %; MCHC 32.7 g/dL (31.0-37.0); MCV 85.5 fL (80.0-100.0); Mean Platelet Volume 7.7; Monocytes # (A) 0.5 k/uL (0-1.0); Monocytes % (A) 4 %; Neutrophils # (A) 10.1 k/uL (1.3-7.7); Neutrophils % (A) 85 %; Platelet Count 202 k/uL (150-450); RBC 3.84 m/uL (4.30-5.90); WBC 11.9 k/uL (3.8-10.6)
[2022-07-27] MEDS: FAMOTIDINE 20 MG/2 ML VIAL IV SCH ×2 (08:17→19:38)
[2022-07-27] MEDS: HEPARIN SODIUM,PORCINE/PF 5,000 UNIT/0.5 ML SYRINGE SQ SCH ×2 (08:17→19:39)
--- NOTE | 2022-07-27 10:52 | P.PN ---
Subjective Progress Note Date: 07/27/22 History of present illness: This is a 57-year-old male patient with no past history of coronary artery disease and does not follow with a contract accountant. Patient does have a past m edical history significant for tonsillar/oral cancer with dysphagia. He is scheduled for EGD and PEG tube today. We have been consult and to evaluate the patient for bradycardia. Heart rate of high 40s intermittently. Patient does not have an EKG nor telemetry monitoring. He in general states he's not feeling well. He is complaining of sore throat. He denies any lightheadedness or dizziness, no chest pain, no shortness of breath. He did have a little lightheadedness yesterday. WBC 4.4, hemoglobin 10.5, platelet count 205. Potassium 4.2. BUN is 6.5 and creatinine 0.9. Ultrasound of bilateral lower extremities negative for DVT 07/27 The patient is denying having any chest pain, shortness of breath, no palpitations. Echocardiogram revealed normal biventricular systolic function. Mild aortic insufficiency. EKG sinus bradycardia. manager education reviewed. TSH 0.708. Physical examination: Gen: This is a thin ill appearing 57-year-old male patient VS: reviewed HEENT: Head is atraumatic, normocephalic. Pupils equal, round. Sclerae is anicteric. NECK: Supple. No JVD. LUNGS: Clear to auscultation. No wheezes or rhonchi. No intercostal retractions. HEART: Regular rate and rhythm. No murmur. ABDOMEN: Soft. No masses. No tenderness. EXTREMITIES: No pedal edema. No calf tenderness. NEUROLOGICAL: Patient is awake, alert and oriented x3. Assessment: Bradycardia, asymptomatic Tonsillar cancer Severe protein calorie malnutrition Plan: Avoid any AV allen blockers Cardiology will follow on an as-needed basis. Please reconsult if any new concerns. Nurse practitioner note has been reviewed, I agree with documented findings and plan of care. Patient was seen and examined. Objective - Vital Signs Vital signs: Vital Signs Temp 97.7 F 07/27/22 05:00 Pulse 63 07/27/22 05:00 Resp 16 07/27/22 05:00 BP 99/56 07/27/22 05:00 Pulse Ox 100 07/27/22 05:00 FiO2 Intake & Output 07/26/22 07/27/22 07/27/22 18:59 06:59 18:59 Intake Total 1100 0 Output Total 1 Balance 1099 0 Weight 62.3 kg 64.5 kg Intake: IV 200 Intake, IV Titration 900 Amount Dextrose 5%-0.9% NaCl 1, 900 000 ml @ 75 mls/hr IV . [id number] [facility] Rx#:[id number] Oral 0 Output: Estimated Blood Loss 1 Other: Voiding Method Toilet - Labs CBC & Chem 7: 07/27/22 07:12 07/26/22 06:20 Labs: Abnormal Lab Results - Last 24 Hours (Table) 07/26/22 07/26/22 07/27/22 Range/Units 06:20 06:20 07:12 WBC 4.48 L 11.9 H (4.50-10.00) X 10*3/uL RBC 3.81 L 3.84 L (4.40-5.60) X 10*6/uL Hgb 10.5 L 10.7 L (13.0-17.0) g/dL Hct 32.0 L 32.9 L (39.6-50.0) % Neutrophils # 10.1 H (1.3-7.7) k/uL Carbon Dioxide 28.6 H (20.0-27.5) mmol/L Anion Gap 6.40 L (10.00-18.00) mmol/L BUN 6.5 L (9.0-27.0) mg/dL BUN/Creatinine Ratio 7.22 L (12.00-20.00) Ratio
--- NOTE | 2022-07-27 11:14 | P.PN ---
Subjective Progress Note Date: 07/27/22 CHIEF COMPLAINT: Tonsillar cancer HISTORY OF PRESENT ILLNESS: Patient status post PEG tube placement postop day #1. Patient has minimal pain at PEG tube site. Denies any nausea vomiting. Afebrile. White count is up from 4-11.9 Hgb 10.7 platelets 202 PHYSICAL EXAM: VITAL SIGNS: Reviewed. GENERAL: Well-developed in no acute distress. HEENT: No sclera icterus. Extraocular movements grossly intact. Moist buccal mucosa. Head is atraumatic, normocephalic. ABDOMEN: Soft. Nondistended. Nontender. PEG tube site minimal dried blood noted otherwise clean dry and intact NEUROLOGIC: Alert and oriented. Cranial nerves II through XII grossly intact. ASSESSMENT: 1. Tonsillar cancer 2. Mild protein calorie malnutrition 3. Dysphagia PLAN: -PEG tube feedings to be started today -Titrate tube feedings per dietitian -Continue supportive care -Nursing staff to clean PEG tube site Physician Building Performance Specialist note has been reviewed by physician. Signing provider agrees with the documented findings, assessment, and plan of care. Objective - Vital Signs Vital signs: Vital Signs Temp 98 F 07/27/22 09:26 Pulse 64 07/27/22 09:26 Resp 16 07/27/22 09:26 BP 110/63 07/27/22 09:26 Pulse Ox 98 07/27/22 09:26 FiO2 Intake & Output 07/26/22 07/27/22 07/27/22 18:59 06:59 18:59 Intake Total 1100 0 Output Total 1 Balance 1099 0 Weight 62.3 kg 64.5 kg Intake: IV 200 Intake, IV Titration 900 Amount Dextrose 5%-0.9% NaCl 1, 900 000 ml @ 75 mls/hr IV . [id number] [facility] Rx#:[id number] Oral 0 Output: Estimated Blood Loss 1 Other: Voiding Method Toilet Toilet - Labs CBC & Chem 7: 07/27/22 07:12 07/26/22 06:20 Labs: Abnormal Lab Results - Last 24 Hours (Table) 07/27/22 Range/Units 07:12 WBC 11.9 H (3.8-10.6) k/uL RBC 3.84 L (4.30-5.90) m/uL Hgb 10.7 L (13.0-17.5) gm/dL Hct 32.9 L (39.0-53.0) % Neutrophils # 10.1 H (1.3-7.7) k/uL
--- NOTE | 2022-07-27 14:56 | P.PN ---
Subjective A pleasant 57 years old male who was recently diagnosed with tonsillar/oral cancer. His oncologist is Dr. Taylor Was admitted because of difficulty eating and dysphagia. Patient will be able to eat because of his tonsillar tumor for the last 5 days. He presents because patient was not eating and drinking 5 days, his been diagnosed with left insular cancer and he has mildly tender nontender lump below his left mandibular angle however he has tender right lymphadenopathy below his right mandibular angle as he states, his airway is patent with some indentation from the left side however it looks like he has difficulty in swallowing He has some nausea but no vomiting, no bowel movement this was not eating well. No abdominal pain. No chest pain or dyspnea, no urinary complaints, no headache dizziness weakness or numbness Over his been complaining of from right side thigh pain with no history of trauma, this patient looks mtic-hy-jygglmnp and is bothering him without distress. Recently he vomited some of blood and developed with his ENT Dr. Moncada at [facility] we did score for him and no concerning source of bleeding is found 07/25/2022 Patient with known new symptoms He is here for dysphagia and odynophagia. Related to his tonsillar tumor and cervical lymphadenopathy. Speech evaluation is appreciated, they recommended thin liquids and pured diet however is still very painful for the patient and is getting malnutrition. I discussed the case with hematology/oncology team and both agreed that he will benefit from another way of nutrition, PEG tube would be better option for him. Also patient with evidence of bradycardia which could be due to morphine effect. We will check TSH at consult intensive care nurse 07/26/2022 Patient is status post PEG tube placement today, we'll start tube feeding too. Diet team consult Patient's mildly bradycardic but asymptomatic, cardiology input is appreciated, echocardiogram is pending Patient other than that clinically stable, no other new complaint. Continue with gentle hydration Possible discharge in 24-48 hours 07/27/2020 Patient status post PEG tube placement, he is going to start tube feeding today He has some pain at his neck which is mild since admission. Cardiology signed off, his bradycardia is asymptomatic. However patient told to stop that he wants to . Therefore we put suicidal precaution, sitter and psych consult Objective - Vital Signs Vital signs: Vital Signs Temp 98.4 F 07/27/22 13:27 Pulse 79 12/21/22 13:27 Resp 16 07/27/22 13:27 BP 144/73 07/27/22 13:27 Pulse Ox 100 07/27/22 13:27 FiO2 Intake & Output 07/26/22 07/27/22 07/27/22 18:59 06:59 18:59 Intake Total 1100 0 Output Total 1 Balance 1099 0 Weight 62.3 kg 64.5 kg Intake: IV 200 Intake, IV Titration 900 Amount Dextrose 5%-0.9% NaCl 1, 900 000 ml @ 75 mls/hr IV . [id number] [facility] Rx#:[id number] Oral 0 Output: Estimated Blood Loss 1 Other: Voiding Method Toilet Toilet - Exam GENERAL: The patient is alert and oriented x3, not in any acute distress. Well developed, well nourished. -HEENT: Pupils are round and equally reacting to light. EOMI. No scleral icterus. No conjunctival pallor. Normocephalic, atraumatic. No pharyngeal erythema. No thyromegaly. Mouth tumor: Left tonsillar mass with some smooth indentation on the left side of the oral cavity, with tenderness below the right mandibular angle with some fullness mostly related to tender lymphedema. CARDIOVASCULAR: S1 and S2 present. No murmurs, rubs, or gallops. PULMONARY: Chest is clear to auscultation, no wheezing or crackles. ABDOMEN: Soft, nontender, nondistended, normoactive bowel sounds. No palpable organomegaly. MUSCULOSKELETAL: No joint swelling or deformity. EXTREMITIES: No cyanosis, clubbing, or pedal edema. NEUROLOGICAL: Gross neurological examination did not reveal any focal deficits. SKIN: No rashes. no petechiae. - Labs CBC & Chem 7: 07/27/22 07:12 07/26/22 06:20 Labs: Abnormal Lab Results - Last 24 Hours (Table) 07/27/22 Range/Units 07:12 WBC 11.9 H (3.8-10.6) k/uL RBC 3.84 L (4.30-5.90) m/uL Hgb 10.7 L (13.0-17.5) gm/dL Hct 32.9 L (39.0-53.0) % Neutrophils # 10.1 H (1.3-7.7) k/uL Assessment and Plan Assessment: Recently diagnosed with left tonsillar cancer with cervical lymphadenopathy Dysphagia secondary to above Jczf-iv-oautyijk calories protein malnutrition Right thigh pain Asymptomatic bradycardia Depression, with wishes of dying Plan: Continue with gentle hydration with D5 normal saline, and can be stopped once 2. Started suicidal precaution, sitter and psych consult Pain management with IV morphine Cardiology consult, signs of the case Nutrition consult Hematology/oncology consult Labs and medication were reviewed.. Continue same treatment. Continue with symptomatic treatment. Resume home medication. Monitor labs and vitals. DVT and GI prophylaxis. Further recommendations as per clinical course of the patient DVT prophylaxis: Subcutaneous heparin GI Prophylaxis: Pepcid Prognosis is guarded
--- NOTE | 2022-07-27 17:02 | P.CN ---
Psychiatric Consult - . 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 He was fully lucid and coherent in elaborating his reaction to the unwelcome news. Today he was seen at the request of MED due to his verbal outburst of "not wanting to live" following the procedure of PEG tube for nutrient support. Cheif complaint; Overwhelmed with cancer stressors and questioning his purpose in life HPI : His medcial history was briefly reviewed and I communicated with the Nursing staff to provide update of his condition. He was started on nursing observation at the [facility] as suicidal precaution. I interviewed him briefly : it is evident that his fatgue and his verbal commmunication along with his dryness of month and throat, would impose further distress on his vulnerable conditon. He was seen esting in the arm chair with the pillow resting against his left cervical region. HE was fully alert and tired and after my introduction he responded to my questions in a meaningful manner. He was less agitated and did not dwell continuoulu on the "suicidal threat:. REgardaing his premorbid condition, he commened that for a while he had a steady congenial positive relatiionship with his female partner who has a 17-yr daughter through her previous relationship. However, dynamics has changed considerably since May. 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 When I asked him how he responded to the cancer news, he was somewhat guarded and noted that in May 2022 he was started on lexapro. Due to the progressive worsening of his dysphagia, he esssentially has not been on SSRI antiderpessant therapy. He did not recevie any support counselling and did not elaborate whether spiritual / manuel-based counselling and support were ever accessed by him in the community. He understood the prognosis in erms of survival rate > 80-90 % with combined radiation and chemotherapy. He has yet to be started on both which have been delayed. In the meanwhile, he was admitted briefly to medical hook for PEG tube insertion to initiate his nutrition. He esssentially did not tolerate any fluid or solid intake for the pasat 1-2 weeks. He understands fully the purpose and indications of the peg tube while at the same time was experieciing the discomfort of PEG as a replacement of his otherwise nutrition route through the oral route. When asked about his home care plan, he would be provided care at his sister and mother's residence and home care would be finalized prior to his discharge from medicine. He was worried about his financial situation; he was behind in paying his bill and possibly medical expenses. He wondered if his short term disability benefits would be exhausted. Prior to his cancer diagnosis, he had no prevous history . There has no history of medical disorders prior to the diagnosis of tonsillar cancer. Past psychiatric history: tonsillar cancer, identified with his lymph node and swallowing difficulty. . the onset of his depression was impacted direclty by his cancer diagnosis. Past medical history: He denied he ever had significant medical history prior to his cancer diagnosis. Past psychosocial history: Due to his medcial condition, I would defer to obtain a full psychosocial history. He felt somewhat abandoned by his fomer mandy monterroso and family afer the diagnosis of tonsillar cancer. 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 His lack of income amde him vulnerable to further negative spinoff from his cancer treatment side effects. MSE: He was seen in his relaxed posture with his PEG filled nutrients running smoothly. His tone of voice was slightly low ; however, no dysphasis. He exhibited psychomotor retardation in elabroating his losses. He appeared to be dejected and sad stop of crying. He adopted a realistic attitude towards his impending cacner treatment which may further aggravated his dysphagia in hittting tghe esophagitis and nancy-pharynx and hence his swallowing . He misssed acccess to solid or liquir fluid intake through the oral passage. affected constricted in range. perceptual disturbances; No hallucinations , no delusions of paranoia. He occasuibbkt greeted the staff with smile. He did not dwell on his sparodic utterance of worthless lviing and his need to consider dying . He d enied any hallucinatons or deluson. Cog: he was fully oiented and commanded fair insight and judgment. His comand of vocabulary was more than adequate. Diagnosis: Major depressive disorder with no psychotic features realted to Cacner related GI complications comorbid: anxiety disorder . No deluson of control or paranoid delusons management plan: 1. Suicidal precaution; I recommend for the bedside nurisng observation to continue x 3 hrs before bedtime. 2. Pharmacy ifnromed the staff lexapro can be crushed. due to his dryness side effect, I suggest he be given he low dosage of 5 mg. if he tolerates the dosage can be increased. Prozac can be given in liquid but mixing with PEG nutrients can be problematic 3. Monitor adverse events durind his cancer treatment 4. reinforce social support and monitor caregiver burden given the home care 5. PCP to coordinate the treatment and home psychiatric intervention. I will follow him tomorrow prior to discharge
[2022-07-27] MEDS ORDERED: HYDROcodone/APAP 15 ML SOLUTION PO PRN ×2 (17:19→17:21)
--- NOTE | 2022-07-27 17:30 | P.PN ---
Subjective Progress Note Date: 07/27/22 Principal diagnosis: odynophagia and failure to thrive, tonsilar CA Pain with swallowing, he does not have pain with secretions or liquids, he has a much harder time with solids. Objective - Vital Signs Vital signs: Vital Signs Temp 98 F 07/27/22 09:26 Pulse 64 07/27/22 09:26 Resp 16 07/27/22 09:26 BP 110/63 07/27/22 09:26 Pulse Ox 98 07/27/22 09:26 FiO2 Intake & Output 07/26/22 07/27/22 07/27/22 18:59 06:59 18:59 Intake Total 1100 0 Output Total 1 Balance 1099 0 Weight 62.3 kg 64.5 kg Intake: IV 200 Intake, IV Titration 900 Amount Dextrose 5%-0.9% NaCl 1, 900 000 ml @ 75 mls/hr IV . [id number] [facility] Rx#:[id number] Oral 0 Output: Estimated Blood Loss 1 Other: Voiding Method Toilet Toilet - Constitutional General appearance: Present: average body habitus, cooperative, thin - EENT Eyes: Present: anicteric sclerae, EOMI ENT: Present: hearing grossly normal - Respiratory Respiratory: bilateral: CTA - Cardiovascular Rhythm: regular - Gastrointestinal Gastrointestinal Comment(s): PEG insertion site dried blood, not tender, swollen or red General gastrointestinal: Present: normal bowel sounds, soft - Neurologic Neurologic: Present: CNII-XII intact - Musculoskeletal Musculoskeletal: Present: generalized weakness - Psychiatric Psychiatric: Present: A&O x's 3, appropriate affect, intact judgment & insight - Labs CBC & Chem 7: 07/27/22 07:12 07/26/22 06:20 Labs: Abnormal Lab Results - Last 24 Hours (Table) 07/27/22 Range/Units 07:12 WBC 11.9 H (3.8-10.6) k/uL RBC 3.84 L (4.30-5.90) m/uL Hgb 10.7 L (13.0-17.5) gm/dL Hct 32.9 L (39.0-53.0) % Neutrophils # 10.1 H (1.3-7.7) k/uL Assessment and Plan (1) Cancer of tonsil Current Visit: Yes Status: Acute Priority: High Code(s): C09.9 - MALIGNANT NEOPLASM OF TONSIL, UNSPECIFIED SNOMED Code(s): 314491209 (2) Odynophagia Current Visit: Yes Status: Acute Priority: High Code(s): R13.10 - DYSPHAGIA, UNSPECIFIED SNOMED Code(s): 75425025 (3) Dysphagia Current Visit: Yes Status: Acute Priority: High Code(s): R13.10 - DYSPHAGIA, UNSPECIFIED SNOMED Code(s): 08651288 Plan: Squamous cell head and neck cancer, limited disease 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 Plan to start concurrent chemo/radiation next week Dysphagia/odynophagia secondary to above. Unfortunately, pt does not qualify at this time for PEG feed because his protein and albumin are not yet low. Per insurance have to wait until pt is nutritionally depleted-which is not reasonable for a pt going through chemo-to receive nutrition support. Pt will soon be choking on food/fluids after a few weeks of treatment because radiation will cause swelling in the neck and pt will have increased pain with swallowing, high risk for aspiration pneumonia. Will monitor nutrition labs weekly in ofc and see when he qualifies for feeding. Will trial liquid norco, to manage pain Medications for prevention of narcotic induced constipation ordered today
[2022-07-27] MEDS: DEXTROSE 5%-0.9% NACL 1,000 ML IV SCH (22:27)
[2022-07-28] MEDS: MORPHINE SULFATE 4 MG/ML SYRINGE IVP PRN (03:27)
[2022-07-28 04:20] VITALS: RESP 18
[2022-07-28] MEDS: DEXTROSE 5%-0.9% NACL 1,000 ML IV SCH ×2 (04:41→10:10)
[2022-07-28 08:56] LABS: Basophils # (A) 0.01 X 10*3/uL (0.00-0.10); Basophils % (A) 0.1 %; Eosinophils # (A) 0.01 X 10*3/uL (0.04-0.35); Eosinophils % (A) 0.1 %; HCT 29.2 % (39.6-50.0); HGB 9.2 g/dL (13.0-17.0); Immature Grans, Automated 0.3 %; Lymphocytes # (A) 0.94 X 10*3/uL (0.90-5.00); Lymphocytes % (A) 7.9 %; MCH 27.4 pg (27.0-32.0); MCHC 31.5 g/dL (32.0-37.0); MCV 86.9 fL (80.0-97.0); Mean Platelet Volume 10.6 fL (9.5-12.2); Monocytes # (A) 0.87 X 10*3/uL (0.20-1.00); Monocytes % (A) 7.3 %; NRBC Per 100 WBC 0 /100 WBCS (0.0-0.0); Neutrophils # (A) 9.98 X 10*3/uL (1.80-7.70); Neutrophils % (A) 84.3 %; Platelet Count 152 X 10*3/uL (140-440); RBC 3.36 X 10*6/uL (4.40-5.60); RDW 13.2 % (11.5-14.5); WBC 11.85 X 10*3/uL (4.50-10.00)
[2022-07-28 09:11] LABS: African American GFR (CKD) 109.6 (60.0-200.0); Anion Gap 8.1 mmol/L (10.00-18.00); BUN/Creat Ratio 12.53 Ratio (12.00-20.00); Blood Urea Nitrogen 11.4 mg/dL (9.0-27.0); Calcium 8.5 mg/dL (8.7-10.3); Carbon Dioxide 27.6 mmol/L (20.0-27.5); Non-African American GFR(CKD) 94.5 (60.0-200.0); Potassium 3.8 mmol/L (3.5-5.5)
[2022-07-28] MEDS: FAMOTIDINE 20 MG/2 ML VIAL IV SCH (10:10)
[2022-07-28] MEDS: HEPARIN SODIUM,PORCINE/PF 5,000 UNIT/0.5 ML SYRINGE SQ SCH (10:11)
[2022-07-28 12:14] VITALS: BP 124/68; PULSE 68; TEMP 99.1
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
--- NOTE | 2022-07-28 14:24 | P.PN ---
Progress Note - Text Progress Note Date: 07/28/22 Patient remained stable. On exam vital signs are stable. Abdomen is soft. PEG tube site is clean. Patient will continue tube feeds and receive supportive care.
--- NOTE | 2022-07-28 18:07 | CDI ---
Documentation Clarification Form Date: 07/28/2022 05:46:09 PM From: Payal Ramirez RN, CCDS Admit Date: 07/24/2022 02:29:00 PM Patient Name: Kyaw Rosa Visit Number: [id number] Discharge Date: ATTENTION: The Clinical Documentation Specialists (CDI) and [facility] Coding Staff appreciate your assistance in clarifying documentation. Please respond to the clarification below the line at the bottom and electronically sign. The CDI & [facility] Coding staff will review the response and follow-up if needed. Please note: Queries are made part of the Legal Health Record. If you have any questions, please contact the author of this message via ITS. Dr. Thompson E Sheet Conflicting documentation has been found in the medical record. As attending physician, please provide clarification. 07/26 Cardiology consult: Severe protein calorie malnutrition 07/25 Attending: [id number] calories protein malnutrition History/Risk Factors: Left tonsillar cancer with cervical lymphadenopathy, dysphagia Clinical Indicators: 57-year-old male present with difficulty eating and dysphagia. He has tonsillar tumor for the last 5 days. Treatment: EGD with PEG tube Entral Nutrition begin at 10 mls/hr goal 48 mls/hr Please clarify which diagnosis is most appropriate: [ ] Mild protein calorie malnutrition [ ] Moderate protein calorie malnutrition [ ] Severe protein calorie malnutrition [ ] Other (please specify) [ ] Unable to determine (Template Last Revised: October 2020) moderate calories protein malnutrition MTDD
[2022-07-28] MEDS ORDERED: MAGNESIUM HYDROXIDE 2,400 MG/10 ML CUP PO PRN (18:16)
[2022-07-28] MEDS ORDERED: DOCUSATE 100 MG CAP PO PRN (18:16)
--- NOTE | 2022-07-28 18:21 | P.PN ---
Subjective Progress Note Date: 07/28/22 Principal diagnosis: odynophagia and failure to thrive, sq cell tonsilar carcinoma In f/u today pt is still having pain with swallowing, but he did pass speech therapy assessment, swallow evaluation. He has been started on PEG feeds, doing well. Pt reoprting he does not want to use PEG tube. Objective - Vital Signs Vital signs: Vital Signs Temp 99.1 F 07/28/22 11:36 Pulse 68 07/28/22 11:36 Resp 18 07/28/22 11:36 BP 124/68 07/28/22 11:36 Pulse Ox 98 07/28/22 11:36 FiO2 Intake & Output 07/27/22 07/28/22 07/28/22 18:59 06:59 18:59 Intake Total 60 Balance 60 Weight 65.5 kg Intake: Tube Feeding 60 Other: Voiding Method Toilet Toilet - Constitutional General appearance: Present: cooperative, no acute distress, thin - EENT Eyes: Present: anicteric sclerae, EOMI ENT: Present: hearing grossly normal - Gastrointestinal General gastrointestinal: Present: normal bowel sounds, soft - Neurologic Neurologic: Present: CNII-XII intact - Musculoskeletal Musculoskeletal: Present: generalized weakness - Psychiatric Psychiatric Comment(s): flat affect, depressed mood Psychiatric: Present: A&O x's 3 - Labs CBC & Chem 7: 07/28/22 05:46 07/28/22 05:46 Labs: Abnormal Lab Results - Last 24 Hours (Table) 07/28/22 07/28/22 Range/Units 05:46 05:46 WBC 11.85 H (4.50-10.00) X 10*3/uL RBC 3.36 L (4.40-5.60) X 10*6/uL Hgb 9.2 L (13.0-17.0) g/dL Hct 29.2 L (39.6-50.0) % MCHC 31.5 L (32.0-37.0) g/dL Neutrophils # 9.98 H (1.80-7.70) X 10*3/uL Eosinophils # 0.01 L (0.04-0.35) X 10*3/uL Carbon Dioxide 27.6 H (20.0-27.5) mmol/L Anion Gap 8.10 L (10.00-18.00) mmol/L Calcium 8.5 L (8.7-10.3) mg/dL Assessment and Plan (1) Cancer of tonsil Current Visit: Yes Status: Acute Priority: High Code(s): C09.9 - MALIGNANT NEOPLASM OF TONSIL, UNSPECIFIED SNOMED Code(s): 780915611 (2) Odynophagia Current Visit: Yes Status: Acute Priority: High Code(s): R13.10 - DYSPHAGIA, UNSPECIFIED SNOMED Code(s): 80179923 (3) Dysphagia Current Visit: Yes Status: Acute Priority: High Code(s): R13.10 - DYSPHAGIA, UNSPECIFIED SNOMED Code(s): 49488037 Plan: Squamous cell head and neck cancer, limited disease, 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 Plan to start concurrent chemo/radiation next week Dysphagia/odynophagia secondary to above. Unfortunately, pt does not qualify at this time for PEG feed because his protein and albumin are not yet low. Per insurance have to wait until pt is nutritionally depleted-which is not reasonable for a pt going through chemo-to receive nutrition support. Pt will soon be choking on food/fluids after a few weeks of treatment because radiation will cause swelling in the neck and pt will have increased pain with swallowing, high risk for aspiration pneumonia. Will monitor nutrition labs weekly in ofc and see when he qualifies for feeding and order at that time. Pt reports today that he is not able to do PEG feeding or care for PEG. Its just "not something I can do". Will contact pt sister to see if she is going to be caring for him. Liquid norco for pain to see if it controls pain for pt it has never been used. Pt cont on morphine IVP. Will have to calculate how much pt is using and conver t to oral Medications for prevention of narcotic induced constipation ordered PRN Time with Patient: Greater than 30
== END 2022-07-28 18:26 | disposition home health service (06) | DRG 147 ==
LOC: EC 13:14 → 5NMEDONC 14:29
PROVIDERS: ADMIT Internal Medicine; ATTEND Internal Medicine
PROC: 3E0G76Z Introduction of Nutritional Substance into Upper GI, Via Natural or Artificial Opening (ICD-10-PCS; 2022-07-26)
PROC: 0DH63UZ Insertion of Feeding Device into Stomach, Percutaneous Approach (ICD-10-PCS; principal; 2022-07-26 07:30)
DX: C09.8 Malignant neoplasm of overlapping sites of tonsil (principal); E44.0 Moderate protein-calorie malnutrition; R04.2 Hemoptysis; R13.12 Dysphagia, oropharyngeal phase; R62.7 Adult failure to thrive; C06.89 Malignant neoplasm of overlapping sites of other parts of mouth; I08.3 Combined rheumatic disorders of mitral, aortic and tricuspid valves; F32.9 Major depressive disorder, single episode, unspecified; F06.4 Anxiety disorder due to known physiological condition; F43.23 Adjustment disorder with mixed anxiety and depressed mood; R00.1 Bradycardia, unspecified; T40.2X5A Adverse effect of other opioids, initial encounter; Z59.6 Low income; Z63.8 Other specified problems related to primary support group; Z79.899 Other long term (current) drug therapy; Z89.519 Acquired absence of unspecified leg below knee; Z28.310 Unvaccinated for COVID-19; Z68.21 Body mass index [BMI] 21.0-21.9, adult
CPT/HCPCS: 36415; 43246; 74230; 80048; 80053; 83735; 84443; 85025; 85027; 93005; 93306; 96360; 99285

== ENCOUNTER → 2022-12-05 | Outpatient (CLI) | payer BC ==
--- NOTE | 2022-12-05 08:33 | CT ---
EXAMINATION TYPE: CT soft tissue neck w con CT DLP: 302.80 mGycm, Automated exposure control for dose reduction was used. DATE OF EXAM: 12/05/2022 7:51 AM COMPARISON: CT soft tissue neck 07/15/2022, 06/03/2022, PET/CT 07/09/2022. 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 Axial sections with coronal and sagittal reformats were obtained. FINDINGS: Brain: Visualized portions are grossly unremarkable. Orbits: Unremarkable Sinuses: The mastoid air cells are clear. Moderate mucosal thickening of the right sphenoid sinus. Mi ld mucosal thickening of the bilateral maxillary sinuses. Spaces of the neck: Significant improvement of previously demonstrated large mass within the left ton sillar pillar. There is some residual asymmetric soft tissue in this region when compared to the righ t. The submandibular glands and parotid glands are symmetric and unremarkable. The larynx is unremark able. The retropharyngeal space is unremarkable. Musculoskeletal: No acute osseous pathology. Anterior cervical fusion hardware redemonstrated involvi ng C6-C7. Lymph nodes: Interval decrease in size of previously seen enlarged left-sided lymph nodes. No lymph nodes greater than 1 cm short axis demonstrated. Vascular structures: Minimal atherosclerotic calcifications of the internal carotid arteries. Thoracic Inlet/airway: Airway is patent. Mild centrilobular emphysematous changes. Soft tissues/Thyro id: Thyroid and remainder of the soft tissues are unremarkable. Other: none. IMPRESSION 1. Positive response to therapy with significant improvement of previously demonstrated large mass wi thin the left tonsillar pillar with some residual asymmetric soft tissue in this region. Attention on follow-up exam. 2. Decreased size of left-sided cervical lymphadenopathy with lymph nodes greater than 1 cm short axi s demonstrated.
== END | disposition home or self-care (01) ==
LOC: RADCTMAIN 06:19
PROVIDERS: ATTEND Radiology Radiation Oncology
DX: C09.1 Malignant neoplasm of tonsillar pillar (anterior) (posterior) (principal); C66.9 Malignant neoplasm of unspecified ureter; R59.0 Localized enlarged lymph nodes
CPT/HCPCS: 70491; Q9967

== ENCOUNTER → 2023-02-22 | Outpatient (CLI) | payer BC ==
--- NOTE | 2023-02-22 11:48 | MR ---
EXAMINATION TYPE: MR brain wo/w con DATE OF EXAM: 02/22/2023 COMPARISON: None HISTORY: Fall, head injury, hx tonsil cancer. CONTRAST: Performed utilizing 6.5 mL intravenous Gadavist gadolinium contrast. TECHNIQUE: Multiplanar, multiecho imaging on a 3.0 Valentina magnet is performed through the brain. Stud y is performed within 24 hours of arrival to the hospital. The craniovertebral junction is normal. The pituitary is normal. Optic chiasm is visualized appears normal. Diffusion-weighted imaging is performed. No abnormal hyperintensity is present to suggest an acute i ntracranial infarct or acute ischemic change. There is a hypointense defect within the left cerebellu m could represent prior old hemorrhage. Vascular flow is adjacent suggesting venous angioma. Mild periventricular white matter hyperintensities present which could be some mild chronic white mat ter ischemic changes. Ventricles and sulci are appropriate for the patient age. Small retention cysts are within the maxillary sinuses. Some minimal fluid is in the inferior left ma stoid air cells. Some mucosal thickening is within the anterior ethmoid air cells. IMPRESSIONS: 1. No suspicious changes to suggest metastatic disease. 2. 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 Some minimal prior hemorrhage is likely p resent adjacent.
== END | disposition home or self-care (01) ==
LOC: RADMRIMAIN 07:59
PROVIDERS: ATTEND Internal Medicine Hematology & Oncology
DX: C76.0 Malignant neoplasm of head, face and neck (principal); S09.90XA Unspecified injury of head, initial encounter; W19.XXXA Unspecified fall, initial encounter; Z85.818 Personal history of malignant neoplasm of other sites of lip, oral cavity, and pharynx
CPT/HCPCS: 70553; A9585

== ENCOUNTER → 2023-03-17 | Outpatient (CLI) | payer BC ==
--- NOTE | 2023-03-20 08:21 | PE ---
EXAMINATION TYPE: PET CT fusion skull to thigh DATE OF EXAM: 03/17/2023 COMPARISON: CT 12/05/2022 Prior PET/CT: 12/09/2022 HISTORY: Tonsillar pillar cancer TECHNIQUE: Following the intravenous administration of 12.68 mCi of F-18 FDG, whole body images are performed from the skull base to the midthigh. Images are reviewed on the computer in the coronal, a xial, and sagittal planes. Reconstructed rotating images are created on independent workstation and reviewed on the computer. A localization and attenuation correction CT is performed in conjunction with the PET scan. DLP: 466.98 mGycm SCAN: Subsequent Blood glucose: 100 mg/dL Average Mediastinum SUV: 1.44 Average Liver SUV: 2.46 FINDINGS: HEAD and NECK: Increased radiotracer is within the torus tubarius extending prevertebral space poste rior to the tonsillar pillar to the level of the hyoid. SUV image 10 is 3.11, SUV image 26 is 3.05. NECK: There is some increased signal within the left tonsillar pillar on the whole body images, exam ple image 22, SUV 2.34. There is some mild increased radiotracer within the left aspect of the anterior neck, example image 4 8, SUV 2.49, which is developing from comparison. THORAX: No suspicious uptake. ABDOMEN: Liver is heterogenous. Focal suspicious area is not identified on this background. No suspic ious uptake within the abdomen is identified. PELVIS: No suspicious uptake OSSEOUS STRUCTURES: There may be some mild uptake at the distal tip of the left 11th rib. Image 156, SUV 2.04. LOCALIZATION CT: There is asymmetry within the lower left hypopharynx. Minimal fullness of the left t onsillar pillar is present compared to the right. Cholelithiasis is evident. Scattered diverticuli wi thin the sigmoid colon. No acute diverticulitis. COMPARISON: Changing uptake in the left neck compared to prior study. Uptake within the left tonsilla r pillar and asymmetry of the left hypopharynx is more apparent on the current exam. Suspected suprac lavicular adenopathy on the left appears to be developing. IMPRESSION: 1. Increasing uptake through the left tonsillar pillar extending towards the left hyoid level and tow ards the left skull base. Recurrence should be considered. 2. New left supraclavicular lymphadenopathy with increased uptake suggestive for metastatic disease. 3. Increased uptake at the tip of the 12th left rib. Metastatic disease and posttraumatic changes cou ld be considered.
== END | disposition home or self-care (01) ==
LOC: RADPETMAIN 06:12
PROVIDERS: ATTEND Radiology Radiation Oncology
DX: C77.9 Secondary and unspecified malignant neoplasm of lymph node, unspecified (principal); C09.1 Malignant neoplasm of tonsillar pillar (anterior) (posterior)
CPT/HCPCS: 78815; A9552

== ENCOUNTER → 2023-03-17 | Outpatient (CLI) | payer BC ==
[2023-03-17 16:06] LABS: Blood Urea Nitrogen 26.6 mg/dL (9.0-27.0)
== END | disposition home or self-care (01) ==
LOC: LABWHC1 08:29
PROVIDERS: ATTEND Radiology Radiation Oncology
DX: C77.9 Secondary and unspecified malignant neoplasm of lymph node, unspecified (principal); C09.1 Malignant neoplasm of tonsillar pillar (anterior) (posterior)
CPT/HCPCS: 36415; 82565; 84520

== ENCOUNTER → 2023-03-21 | Outpatient (CLI) | payer BC ==
--- NOTE | 2023-03-21 09:19 | CT ---
EXAMINATION TYPE: CT soft tissue neck w con CT DLP: 536 mGycm, Automated exposure control for dose reduction was used. DATE OF EXAM: 03/21/2023 8:14 AM COMPARISON: 03/17/2023 at/CT. CLINICAL INDICATION:Male, 58 years old with history of C09.1 C66.9; PHH, Tonsillar cancer, secondary lymph node TECHNIQUE: Standard enhanced CT of the neck. Axial sections with coronal and sagittal reformats were obtained. Contrast used:80 ml mL of Isovue 300 with IV Contrast, Oral contrast used: none. FINDINGS: Brain: Visualized portions are grossly unremarkable. Orbits: Unremarkable Sinuses: Grossly unremarkable. Spaces of the neck: Clear and symmetric. CT imaging of the larynx is rather symmetric. Area within th e left mucosa seen on prior PET/CT is not definitively demonstrate a mass. There is no enlarged lymph nodes present. No greater than 1.0 cm in short axis lymph nodes. Musculoskeletal: No acute osseous pathology. No suspicious osseous lesions. Postsurgical changes C6 a nd C7. Hardware appears intact. No evidence for significant spinal canal or neural foraminal stenosis . Lymph nodes: Multiple nonenlarged lymph nodes are seen along both anterior chains of the neck. Vascular structures: Patent with atherosclerotic plaque of the internal carotid arteries at the bifur cation. Thoracic Inlet/airway: Airway is patent. The lung apices are clear. Soft tissues/Thyroid: Thyroid and remainder of the soft tissues are unremarkable. Other: none. IMPRESSION 1. Area of abnormal uptake on pet/CT does not have a definitive CT correlate. Consider direct visual ization. 2. No adenopathy identified. No suspicious osseous lesions.
== END | disposition home or self-care (01) ==
LOC: RADCTMAIN 07:40
PROVIDERS: ATTEND Radiology Radiation Oncology
DX: C77.9 Secondary and unspecified malignant neoplasm of lymph node, unspecified (principal); C09.1 Malignant neoplasm of tonsillar pillar (anterior) (posterior); C66.9 Malignant neoplasm of unspecified ureter
CPT/HCPCS: 70491; Q9967

== ENCOUNTER → 2023-06-09 | Outpatient (CLI) | payer BC ==
[2023-06-09 10:41] LABS: African American GFR (CKD) 56 (>60 ml/min/1.73 sqM); Blood Urea Nitrogen 27 mg/dL (9-20); Non-African American GFR(CKD) 48 (>60 ml/min/1.73 sqM)
--- NOTE | 2023-06-09 11:26 | CT ---
EXAMINATION TYPE: CT soft tissue neck w con DATE OF EXAM: 06/09/2023 COMPARISON: 03/21/2023, 12/05/2022 HISTORY: 58-year-old male C09.1, Malignant neoplasm of tonsillar pillar TECHNIQUE: Contiguous axial scanning of the soft tissues of the neck performed with IV Contrast, elva ent injected with 100 ml mL of Isovue 300. Coronal/sagittal reconstructions performed. CT DLP: 443 mGycm Automated exposure control for dose reduction was used. FINDINGS: Visualized intracranial structures show no gross anomaly. Dominant left vertebral artery. Moderate lo bulated mucosal thickening maxillary sinuses. 7 mm mucosal retention cyst right sphenoid sinus. Leftward nasal septal deviation. Mastoid air cells well pneumatized. Orbits and globes are intact. Nasopharynx appear clear. There is similar slight narrowing of the left vallecular space. Oropharynx otherwise appears clear. Similar slight asymmetric thickening left aryepiglottic fold. Glottic and subglottic structures as well as the tracheal column and visualized upper lungs appear cl ear. C6/C7 ACDF. The thyroid gland and submandibular glands as well as the parotid glands appear satisfactory. No abnormal cervical lymphadenopathy is identified. IMPRESSION: 1. SIMILAR SLIGHT ASYMMETRIC EFFACEMENT LEFT VALLECULAR SPACE AND SLIGHT ASYMMETRIC THICKENING LEFT A RYEPIGLOTTIC FOLD COMPARED TO 03/21/2023. THE OVERALL MUCOSAL SPACE EDEMA SEEN ON 12/05/2022 HAS IMPROVE D. NO SUSPICIOUS LYMPHADENOPATHY OR FINDINGS TO SUGGEST RECURRENT DISEASE.
== END | disposition home or self-care (01) ==
LOC: RADCTMAIN 07:45
PROVIDERS: ATTEND Radiology Radiation Oncology
DX: C77.9 Secondary and unspecified malignant neoplasm of lymph node, unspecified (principal); C09.1 Malignant neoplasm of tonsillar pillar (anterior) (posterior)
CPT/HCPCS: 82565; 84520; 70491; 36415; Q9967

== ENCOUNTER → 2023-06-15 | Outpatient (CLI) | payer BC ==
--- NOTE | 2023-06-15 10:45 | PE ---
EXAMINATION TYPE: PET CT fusion skull to thigh DATE OF EXAM: 06/15/2023 CLINICAL INDICATION:Male, 58 years old with history of C09.1 Malignant neoplasm of tonsillar pillar; TECHNIQUE: Following the intravenous administration of 12.0 mCi of F-18 FDG, whole body images are performed from the skull base to the midthigh. Images are reviewed on the computer in the coronal, a xial, and sagittal planes. Reconstructed rotating images are created on independent workstation and reviewed on the computer. A non-contrast CT is performed in conjunction with the PET scan. Glucose level 95 mg/dL CT DLP: 399.93 mGycm, Automated exposure control for dose reduction was used. COMPARISON: CT 06/09/2023, PET/CT multiple dating back to 07/09/2022 FINDINGS: Mediastinal SUV mean is 2.0. Hepatic parenchyma SUV mean is 2.6. SKULL BASE AND NECK: Mild motion artifact limits evaluation. Prior left oral mucosal mass on 07/09/2022 remains without increased metabolic activity. There is no d efinitive mass visualized. There is small focal radiotracer uptake felt to be within a muscle near th e left hyoid bone max SUV 4.6. Physiologic uptake within the larynx posteriorly max SUV 4.1. Multiple left-sided neck lymph nodes are no longer visualized and there is no suspicious FDG activity within lymph nodes. CHEST, MEDIASTINUM, AND HILAR REGION: No suspicious radiotracer activity. ABDOMEN AND PELVIS: No suspicious radiotracer activity. OSSEOUS STRUCTURES: No suspicious radiotracer activity. OTHER CT: Coronary artery atherosclerosis. Multiple calcified gallstones are present. Atherosclerosis of the abdominal aorta. Appendix is normal. Postsurgical changes to the lower cervical spine. IMPRESSION: 1. There remains no evidence for abnormal FDG activity to suggest recurrence or active neoplasm. 2. No evidence of metastatic disease to the chest, abdomen or pelvis or osseous structures.
== END | disposition home or self-care (01) ==
LOC: RADPETMAIN 07:40
PROVIDERS: ATTEND Radiology Radiation Oncology
DX: C09.1 Malignant neoplasm of tonsillar pillar (anterior) (posterior) (principal); C77.9 Secondary and unspecified malignant neoplasm of lymph node, unspecified
CPT/HCPCS: 78815; A9552

== ENCOUNTER → 2023-09-14 | Outpatient (CLI) | payer BC ==
--- NOTE | 2023-09-14 08:32 | CT ---
EXAMINATION TYPE: CT soft tissue neck w con CT DLP: 530 mGycm, Automated exposure control for dose reduction was used. DATE OF EXAM: 09/14/2023 8:15 AM COMPARISON: Pet/CT 06/15/2023. CLINICAL INDICATION:Male, 58 years old with history of C09.1 MALIG NEOPLASM OF TONSILLAR PILLAR; PHH, malignant neoplasm of tonsillar pillar TECHNIQUE: Standard enhanced CT of the neck. Axial sections with coronal and sagittal reformats were obtained. Contrast used:80 mL of Isovue 300 with IV Contrast, (None if empty) Oral contrast used: (None if empty) FINDINGS: Brain: Visualized portions are grossly unremarkable. Orbits: Unremarkable Sinuses: Grossly unremarkable. Spaces of the neck: Clear and symmetric. No abnormal masses. Musculoskeletal: No acute osseous pathology. Post fixation changes to the spine. Hardware appears int act. Mild multilevel degeneration changes throughout the spine worse at the lateral facet of the righ t C3-C4 facets. Lymph nodes: Multiple nonenlarged lymph nodes are seen along both anterior chains of the neck. Vascular structures: Patent with atherosclerotic plaque of the internal carotid arteries at the bifur cation. Thoracic Inlet/airway: Airway is patent. The lung apices are clear. Soft tissues/Thyroid: Thyroid and remainder of the soft tissues are unremarkable. Other: none. IMPRESSION No evidence for lymphadenopathy. Specifically no greater than 1.0 cm in short axis lymph nodes. The m ucosal is relatively symmetric on CT imaging.
== END | disposition home or self-care (01) ==
LOC: RADCTMAIN 07:38
PROVIDERS: ATTEND Radiology Radiation Oncology
DX: C77.9 Secondary and unspecified malignant neoplasm of lymph node, unspecified (principal); C09.1 Malignant neoplasm of tonsillar pillar (anterior) (posterior)
CPT/HCPCS: 70491; Q9967

== ENCOUNTER → 2023-09-14 | Outpatient (CLI) | payer BC ==
--- NOTE | 2023-09-17 17:46 | PE ---
EXAMINATION TYPE: PET CT fusion skull to thigh DATE OF EXAM: 09/14/2023 CLINICAL INDICATION:Male, 58 years old with history of C09.1 TONSILLAR CANCER; TECHNIQUE: Following the intravenous administration of 13.4 mCi of F-18 FDG, whole body images are performed from the skull base to the midthigh. Images are reviewed on the computer in the coronal, a xial, and sagittal planes. Reconstructed rotating images are created on independent workstation and reviewed on the computer. A non-contrast CT is performed in conjunction with the PET scan. Glucose level 85 mg/dL CT DLP: 444 mGycm, Automated exposure control for dose reduction was used. COMPARISON: CT 09/14/2023 , PET/CT 06/15/2023, FINDINGS: Mediastinal SUV mean is 2.0. Hepatic parenchyma SUV mean is 2.5. SKULL BASE AND NECK: * No suspicious radiotracer activity. * Physiologic uptake within the lungs: Mostly on the left Max SUV 6.4 * Uptake within the left floor the mouth max SUV 6.5 just anterior to the hyoid bone thought to be w ithin the muscle. * Uptake with left scalene muscles. CHEST, MEDIASTINUM, AND HILAR REGION: No suspicious radiotracer activity. ABDOMEN AND PELVIS: No suspicious radiotracer activity. MUSCULOSKELETAL STRUCTURES: No suspicious radiotracer activity. OTHER CT: Atherosclerosis of the carotid bifurcation. Fixation hardware in the lower cervical spine. Gallstones present in the gallbladder lumen. There is excreted IV contrast in the renal collecting sy stems. The urinary bladder is incompletely distended. IMPRESSION: No suspicious radiotracer activity.
== END | disposition home or self-care (01) ==
LOC: RADPETMAIN 07:44
PROVIDERS: ATTEND Radiology Radiation Oncology
DX: C77.9 Secondary and unspecified malignant neoplasm of lymph node, unspecified (principal); C09.1 Malignant neoplasm of tonsillar pillar (anterior) (posterior)
CPT/HCPCS: 78815; A9552

== ENCOUNTER → 2024-03-13 | Outpatient (CLI) | payer BC ==
--- NOTE | 2024-04-15 17:50 | CT ---
Patient Shelley Card T ID [id number] Order # EXAMINATION TYPE: CT soft tissue neck w con DATE OF EXAM: 03/19/2024 COMPARISON: No prior available downtime PACS. Comparison cannot be this time. Exam is reviewed as a s tat request. HISTORY: Bleeding neoplasm of the tonsillar pillar CT DLP: 362.0 mGycm CONTRAST: Patient injected with 0 mL of Isovue 300. TECHNIQUE: Axial images at 3 mm thick sections. Reconstructed images in the coronal plane and sagitt al plane are reviewed. FINDINGS: Limited CT sections are obtained the lung apices. The lung apices appear clear. CT neck: The torus tubarius and fossa of Rosenmuller are normal. Organisational Psychologist spaces are normal. Ther e is a retention cyst or polyp within the right sphenoid sinus. Maxillary sinuses have mucous retenti on cysts or polyps. Remaining paranasal sinuses and mastoid air cells are clear. Tonsillar pillars appear symmetrical. Parapharyngeal spaces appear unremarkable. The patient reported tonsillar pillar neoplasm is not identified on this examination. No suspicious underlying masses are identified. No suspicious changes to suggest metastatic disease is evident. Parotid glands appear normal and symmetrical. Submandibular glands, are normal. Parapharyngeal spac es are normal. No suspicious adenopathy is evident. The hypopharynx appears within normal limits. Vocal cord level appear symmetrical. Thyroid as visualized is normal. Osseous structures are normal. IMPRESSION: 1. No suspicious changes to suggest recurrent or metastatic tonsillar pillar on neoplasm. Recommend orion chu when comparison images become available.
== END | disposition home or self-care (01) ==
LOC: RADCTMAIN 16:42
PROVIDERS: ATTEND Radiology Radiation Oncology
DX: C09.1 Malignant neoplasm of tonsillar pillar (anterior) (posterior) (principal); C77.9 Secondary and unspecified malignant neoplasm of lymph node, unspecified; K11.6 Mucocele of salivary gland; Z08 Encounter for follow-up examination after completed treatment for malignant neoplasm
CPT/HCPCS: 70491; Q9967